=== PATIENT | female | born 1950 | race Caucasian/White ===

== ENCOUNTER 2017-01-26 09:48 | Outpatient (CLI) | payer BC, OTHER ==
[2017-01-26 10:18] LABS: #Basophils 0.1 thou/uL (0.0-0.2); #Eosinphils 0.4 thou/uL (0.0-0.7); #Lymphocytes 2.5 thou/uL (1.20-3.40); #Monocytes 0.8 thou/uL (0.11-0.59); #Neutrophils 5.5 thou/uL (1.40-6.50); %Basophils 1.3 % (0.0-1.0); %Eosinophils 4.4 % (0.0-10.0); %Lymphocytes 27.1 % (21.0-51.0); %Monocytes 8.8 % (0.0-10.0); %Neutrophils 58.5 % (42.0-75.0); Hemoglobin 12.9 g/dL (12.0-16.0); Mean Corpuscular HGB CONC 32.7 g/dL (32.0-36.0); Mean Corpuscular Hemoglobin 31.6 pg (27.0-31.0); Mean Corpuscular Volume 96.5 fl (81.0-99.0); Mean Platelet Volume 6.7 fL (7.4-10.4); Platelet Count 340 thou/uL (130-400); RBC Distribution Width 13.3 % (11.5-14.5); Red Blood Cell (RBC) Count 4.07 mill/uL (4.20-5.40); White Blood Cell (WBC) Count 9.4 thou/uL (4.8-10.8)
[2017-01-26 10:39] LABS: ALT (SGPT) 14 U/L (8-55); AST (SGOT) 17 U/L (5-34); Albumin 4.3 g/dL (3.4-4.8); Alkaline Phosphatase 77 U/L (40-150); Anion Gap 13 mmol/L (10-20); BUN (Urea Nitrogen) 14 mg/dL (9.8-20.1); Bilirubin, Total 0.5 mg/dL (0.2-1.2); Calc. Creatinine Clearance 0 mL/min (70-130); Calcium 9.5 mg/dL (7.8-10.44); Carbon Dioxide 26 mmol/L (23-31); Cardiac Risk 2.8 (Less than 4.5); Chloride 105 mmol/L (98-107); Cholesterol 163 mg/dl (< 200 Desired); Estimated GFR-MDRD 80; Globulin 3.6 g/dL (2.4-3.5); Glucose 118 mg/dL (80-115); HDL Cholesterol 59 mg/dL (>60 Neg Risk); LDL Cholesterol, Calculated 83 mg/dL; Potassium 4.3 mmol/L (3.5-5.1); Protein, Total 7.9 g/dL (6.0-8.3); Sodium 140 mmol/L (136-145); Triglycerides 103 mg/dL (Less than 150)
== END 2017-01-26 09:49 | disposition home or self-care (01) ==
LOC: MADLABBHPM 09:48
PROVIDERS: ATTEND Family Medicine
DX: Z00.00 Encounter for general adult medical examination without abnormal findings (principal)
CPT/HCPCS: 36415; 80053; 80061; 84443; 85025

== ENCOUNTER 2017-04-18 08:13 | Outpatient (CLI) | payer BC ==
[2017-04-18 09:05] LABS: Hemoglobin A1c 5.7 % (4.0-6.0)
[2017-04-18 09:17] LABS: #Basophils 0.1 thou/uL (0.0-0.2); #Eosinphils 0.4 thou/uL (0.0-0.7); #Neutrophils 5.5 thou/uL (1.40-6.50); %Basophils 1.4 % (0.0-1.0); %Eosinophils 4.4 % (0.0-10.0); %Lymphocytes 29.7 % (21.0-51.0); %Monocytes 9.4 % (0.0-10.0); %Neutrophils 55.1 % (42.0-75.0); Mean Corpuscular HGB CONC 33.4 g/dL (32.0-36.0); Mean Corpuscular Hemoglobin 31.9 pg (27.0-31.0); Mean Corpuscular Volume 95.4 fl (81.0-99.0); Mean Platelet Volume 7.3 fL (7.4-10.4); Platelet Count 293 thou/uL (130-400); RBC Distribution Width 12.4 % (11.5-14.5); Red Blood Cell (RBC) Count 4.07 mill/uL (4.20-5.40)
[2017-04-18 10:06] LABS: ALT (SGPT) 12 U/L (8-55); AST (SGOT) 16 U/L (5-34); Albumin 4.3 g/dL (3.4-4.8); Alkaline Phosphatase 70 U/L (40-150); Anion Gap 14 mmol/L (10-20); BUN (Urea Nitrogen) 15 mg/dL (9.8-20.1); Bilirubin, Direct 0.3 mg/dL (0.1-0.3); Bilirubin, Total 0.6 mg/dL (0.2-1.2); Calc. Creatinine Clearance 0 mL/min (70-130); Calcium 9.7 mg/dL (7.8-10.44); Carbon Dioxide 26 mmol/L (23-31); Cardiac Risk 2.9 (Less than 4.5); Chloride 103 mmol/L (98-107); Cholesterol 164 mg/dl (< 200 Desired); Estimated GFR-MDRD 84; Glucose 103 mg/dL (80-115); HDL Cholesterol 57 mg/dL (>60 Neg Risk); LDL Cholesterol, Calculated 92 mg/dL; Potassium 4.2 mmol/L (3.5-5.1); Protein, Total 7.8 g/dL (6.0-8.3); Sodium 139 mmol/L (136-145); Triglycerides 73 mg/dL (Less than 150)
[2017-04-18 18:53] LABS: Creatinine, Urine 92.83 mg/dL (47-110); Microalbumin Urine Less than 1.0 mg/dL (0.5-50.0); Microalbumin/Creat Ratio 10.8 mg/g (Less than 30)
== END 2017-04-18 08:14 | disposition home or self-care (01) ==
LOC: MADLABBHPM 08:13
PROVIDERS: ATTEND Family Medicine
DX: I25.10 Atherosclerotic heart disease of native coronary artery without angina pectoris (principal); E78.00 Pure hypercholesterolemia, unspecified; E11.9 Type 2 diabetes mellitus without complications
CPT/HCPCS: 36415; 80048; 80061; 80076; 82043; 83036; 85025

== ENCOUNTER 2018-02-07 13:13 | Emergency (ER) | payer BC ==
[2018-02-07] MEDS ORDERED: Ondansetron HCl/PF 4 MG/2 ML Vial ONE (13:45)
--- NOTE | 2018-02-07 13:49 | CT ---
CT BRAIN WITHOUT CONTRAST: Comparison: None. History: Headache for one week that is worse today. Technique: Multiple contiguous axial images were obtained in a CT of the brain without contrast. FINDINGS: There are a few scattered hypodensities in the subcortical and periventricular white matter, likely s econdary to small vessel ischemic disease. No large confluent infarction is seen. There is no evidenc e of hydrocephalus, intracranial hemorrhage or extraaxial fluid collection. The calvarium and overlying soft tissues are unremarkable. The visualized paranasal sinuses and masto id air cells are well aerated. IMPRESSION: No evidence of acute intracranial abnormality. POS: [facility]
--- NOTE | 2018-02-07 13:50 | RAD ---
PORTABLE UPRIGHT FRONTAL CHEST RADIOGRAPH: Date: 02/07/18 COMPARISON: 09/27/12. HISTORY: Dyspnea. FINDINGS: Midline sternotomy wires and mediastinal clips are present. The lungs appear mildly hyperinflated wit h mild increased linear interstitial density. No pneumothorax, pleural fluid, lobar consolidation, or alveolar edema. IMPRESSION: Postoperative changes. No acute findings. POS: [facility]
[2018-02-07 13:58] LABS: CKMB 0.7 ng/mL (0-6.6); Troponin I Less than 0.010 ng/mL (< 0.028)
[2018-02-07 14:00] LABS: Eosinophils 3 % (0-10); Hemoglobin 13.4 g/dL (12.0-16.0); Lymphocytes 18 % (21-51); MDiff Complete? YES; Mean Corpuscular HGB CONC 32.6 g/dL (32.0-36.0); Mean Corpuscular Hemoglobin 29.8 pg (27.0-31.0); Mean Corpuscular Volume 91.4 fL (78.0-98.0); Mean Platelet Volume 6.6 fL (7.4-10.4); Monocytes 4 % (0-10); Neutrophil 75 % (42-75); Platelet Count 320 thou/uL (130-400); RBC Distribution Width 12.7 % (11.5-14.5); Red Blood Cell (RBC) Count 4.49 mill/uL (4.20-5.40); White Blood Cell (WBC) Count 13.3 thou/uL (4.8-10.8)
[2018-02-07 14:02] LABS: ALT (SGPT) 13 U/L (8-55); AST (SGOT) 21 U/L (5-34); Albumin 4.5 g/dL (3.4-4.8); Alkaline Phosphatase 71 U/L (40-150); Anion Gap 17 mmol/L (10-20); BUN (Urea Nitrogen) 17 mg/dL (9.8-20.1); Bilirubin, Total 0.6 mg/dL (0.2-1.2); Calc. Creatinine Clearance 0 mL/min (70-130); Calcium 9.7 mg/dL (7.8-10.44); Carbon Dioxide 24 mmol/L (23-31); Chloride 105 mmol/L (98-107); Estimated GFR-MDRD 85; Globulin 3.6 g/dL (2.4-3.5); Glucose 112 mg/dL (80-115); Lipase 27 U/L (8-78); Protein, Total 8.1 g/dL (6.0-8.3); Sodium 142 mmol/L (136-145)
[2018-02-07] MEDS ORDERED: Ketorolac Tromethamine 30 MG/ML VIAL ONE (14:17)
[2018-02-07] MEDS ORDERED: Acetaminophen 500 MG TAB ONE (14:17)
== END 2018-02-07 14:41 | disposition home or self-care (01) ==
LOC: MADERS 13:13
DX: R51 Headache (principal); R11.0 Nausea; E11.9 Type 2 diabetes mellitus without complications; I10 Essential (primary) hypertension; I25.10 Atherosclerotic heart disease of native coronary artery without angina pectoris; F41.9 Anxiety disorder, unspecified; Z79.84 Long term (current) use of oral hypoglycemic drugs
CPT/HCPCS: 36415; 70450; 71045; 80053; 82553; 83690; 84484; 85025; 93005; 96374; 96375; J1885; J2405

== ENCOUNTER → 2019-10-30 | Emergency (ER) | payer MEDICARE ==
[~2019-10-30] MED LIST: Aspirin 325 MG TAB ONE; Nitroglycerin 2% Ointment 1 INCH/1 GM Packet ONE; Ondansetron ODT 4 MG TAB ONE
--- NOTE | 2019-10-30 16:13 | RAD ---
PORTABLE CHEST: 10/30/19 at 4:12 p.m. HISTORY: Chest pain. COMPARISON: Comparison made with exam of 02/07/18. Changes of median sternotomy again seen. The heart size is normal. No focal areas of consolidation, p neumothoraces, dieter pulmonary edema, or pleural effusions are seen. IMPRESSION: No acute process. POS: [facility]
[2019-10-30 16:17] LABS: #Basophils 0.2 thou/uL (0.0-0.2); #Eosinphils 0.5 thou/uL (0.0-0.7); #Lymphocytes 3.2 thou/uL (1.20-3.40); #Monocytes 0.8 thou/uL (0.11-0.59); #Neutrophils 5.8 thou/uL (1.40-6.50); %Basophils 1.5 % (0.0-1.0); %Eosinophils 4.8 % (0.0-10.0); %Lymphocytes 30.2 % (21.0-51.0); %Monocytes 7.9 % (0.0-10.0); %Neutrophils 55.6 % (42.0-75.0); Mean Corpuscular HGB CONC 32.1 g/dL (32.0-36.0); Mean Corpuscular Hemoglobin 30.5 pg (27.0-31.0); Mean Corpuscular Volume 95.2 fL (78.0-98.0); Platelet Count 330 thou/uL (130-400); RBC Distribution Width 12.9 % (11.5-14.5); Red Blood Cell (RBC) Count 4.27 mill/uL (4.20-5.40); White Blood Cell (WBC) Count 10.5 thou/uL (4.8-10.8)
[2019-10-30 16:31] LABS: ALT (SGPT) 15 U/L (8-55); AST (SGOT) 21 U/L (5-34); Albumin 4.5 g/dL (3.4-4.8); Alkaline Phosphatase 66 U/L (40-110); Anion Gap 19 mmol/L (10-20); BUN (Urea Nitrogen) 15 mg/dL (9.8-20.1); Bilirubin, Total 0.4 mg/dL (0.2-1.2); Calc. Creatinine Clearance 0 mL/min (70-130); Calcium 9.6 mg/dL (7.8-10.44); Carbon Dioxide 22 mmol/L (23-31); Chloride 107 mmol/L (98-107); Estimated GFR-MDRD 68; Globulin 3.3 g/dL (2.4-3.5); Glucose 111 mg/dL (80-115); Potassium 3.9 mmol/L (3.5-5.1); Protein, Total 7.8 g/dL (6.0-8.3); Sodium 144 mmol/L (136-145)
== END ==
LOC: MADERS 15:41
DX: I24.9 Acute ischemic heart disease, unspecified (principal); I25.110 Atherosclerotic heart disease of native coronary artery with unstable angina pectoris; E11.9 Type 2 diabetes mellitus without complications; I10 Essential (primary) hypertension; F41.9 Anxiety disorder, unspecified; Z79.84 Long term (current) use of oral hypoglycemic drugs
CPT/HCPCS: 71045; 80053; 83880; 84484; 85025; 93005; Q0162

== ENCOUNTER 2020-08-23 13:24 | Inpatient (IN) | payer MEDICARE ==
[2020-08-23] MEDS ORDERED: Acetaminophen 325 MG TAB PO PRN (17:22)
[2020-08-23] MEDS ORDERED: Enoxaparin Sodium 40 MG/0.4 ML SYRINGE SC SCH (17:45)
[2020-08-23] MEDS: HYDROcodone/Acetaminophen 5/325 mg Tablet PO PRN (18:18)
[2020-08-23] MEDS: Clindamycin 150 MG CAP PO SCH (20:33)
[2020-08-23] MEDS: Carvedilol 3.125 MG TAB PO SCH (20:34)
[2020-08-23] MEDS: Isosorbide Mononitrate 20 MG TAB PO SCH (20:34)
[2020-08-24] MEDS: HYDROcodone/Acetaminophen 10/325 mg Tablet PO PRN ×2 (02:58→15:12)
[2020-08-24 05:46] LABS: #Basophils 0.1 thou/uL (0.0-0.2); #Eosinphils 0.6 thou/uL (0.0-0.7); #Lymphocytes 2.7 thou/uL (1.20-3.40); #Monocytes 0.9 thou/uL (0.11-0.59); #Neutrophils 3.3 thou/uL (1.40-6.50); %Basophils 1.5 % (0.0-1.0); %Eosinophils 8.4 % (0.0-10.0); %Lymphocytes 35.3 % (21.0-51.0); %Neutrophils 42.8 % (42.0-75.0); Hemoglobin 10.1 g/dL (12.0-16.0); Mean Corpuscular HGB CONC 32.3 g/dL (32.0-36.0); Mean Corpuscular Hemoglobin 30.3 pg (27.0-31.0); Mean Platelet Volume 6.5 fL (7.4-10.4); Platelet Count 297 thou/uL (130-400); RBC Distribution Width 13.3 % (11.5-14.5); Red Blood Cell (RBC) Count 3.34 mill/uL (4.20-5.40); White Blood Cell (WBC) Count 7.7 thou/uL (4.8-10.8)
[2020-08-24 06:01] LABS: ALT (SGPT) 17 U/L (8-55); AST (SGOT) 17 U/L (5-34); Albumin 3.7 g/dL (3.4-4.8); Alkaline Phosphatase 81 U/L (40-110); Anion Gap 16 mmol/L (10-20); BUN (Urea Nitrogen) 19 mg/dL (9.8-20.1); Bilirubin, Total 0.3 mg/dL (0.2-1.2); Calc. Creatinine Clearance 95 mL/min (70-130); Calcium 9.2 mg/dL (7.8-10.44); Carbon Dioxide 29 mmol/L (23-31); Chloride 102 mmol/L (98-107); Globulin 2.9 g/dL (2.4-3.5); Glucose 115 mg/dL (80-115); Potassium 4.5 mmol/L (3.5-5.1); Protein, Total 6.6 g/dL (6.0-8.3); Sodium 142 mmol/L (136-145)
--- NOTE | 2020-08-24 06:06 | HP ---
Admitted to [facility]. CHIEF COMPLAINT: Weakness following surgery on her right lower leg. HISTORY OF PRESENT ILLNESS: The patient is a 69-year-old white female, who has a history of hypertension, coronary artery disease, diabetes mellitus type 2 that is well controlled, and osteoarthritis. The patient had undergone a right total knee replacement by Dr. Wilson, orthopedic surgeon, on May 11, 2020. The surgery was complicated by a fracture of the tibial shaft requiring some plate and cerclage stabilizers. The patient was initially nonweightbearing and gradually improved. She was seen in followup by him and seemed to be doing well and then recently developed more pain in the right lower leg. On followup visit, she was found to have a new fracture in the mid shaft of the right tibia. The patient was rehospitalized at [facility] on 08/18 for repair of the mid shaft fracture of the tibia. She underwent placement of a long plate with 9 screws. The long anterior incision was closed with interrupted sutures. She was placed at just light toe-touch to no weightbearing and no cast or splint and is due to see him in followup in 2 weeks. The patient's initial surgery on 05/11, she underwent the total knee replacement and after the fracture of the tibia was found, the tibial plateau plate was placed with a long-stem intramedullary component and then with cerclage wrappings. It was near this last cerclage that this new fracture occurred. The patient has been managing her pain with tramadol and hydrocodone and doing well. She is feeling better, but is weak and has not been really up doing any walking, is only getting around in a wheelchair. She was entered into [facility] for purpose of extended care with the effort to increase her strength, her functional capability and gait training where she can ambulate with nonweightbearing other than light toe touch with the use of a walker. Her daughter, Mamie, was with her and was able to give a good history of the events. PAST HISTORY: The patient has hypertension that is well controlled. Her diabetes is type 2 and is well controlled, on just metformin 500 mg twice a day, her last hemoglobin A1c was 5.9 on 07/21/2020. The patient has coronary artery disease, for which she has had a coronary artery bypass x4 in February 2011. She has had stents x1 in 2011, stents x1 in 2013. 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 She has hyperlipidemia. The patient has a history of depression that has been well controlled. PRESENT MEDICINES: 1. Sertraline 150 mg daily. 2. Atorvastatin 20 mg daily. 3. Clindamycin 300 mg t.i.d. 4. Tramadol 50 mg every 6 hours as needed for pain. 5. Hydrocodone/acetaminophen 10/325 one every 6 hours as needed for pain. 6. Aspirin 81 mg daily. 7. Carvedilol 3.125 mg b.i.d. 8. Calcium carbonate with D one daily. 9. Biotin 1000 mcg daily. 10. Furosemide 20 mg daily. 11. Isosorbide mononitrate 20 mg b.i.d. 12. Pantoprazole 40 mg daily. 13. Meloxicam 15 mg daily. 14. Metformin 500 mg b.i.d. ALLERGIES: PENICILLINS, NICKEL. REVIEW OF SYSTEMS: GENERAL: The patient said she does not think she has gained or lost any weight recently. She has had no chills or fever. EYES, EARS, NOSE, AND THROAT: No complaints. PULMONARY: No shortness of breath. CARDIOVASCULAR: No chest pain. GI: No nausea or vomiting. No change in bowel habits. : No complaints. MUSCULOSKELETAL: The right lower leg has a long incision. There has been a little brown reddish discoloration over the anterior lower leg. It looks better according to her daughter. There are a couple of spots of serous drainage from the incision. The leg is being wrapped with an Stephane bandage after a gauze dressing is applied. She is at no weightbearing or at most toe-touch. NEUROPSYCHIATRIC: No complaints other than she has some trouble with poor recent memory. ADLs: Prior to her fracture of the right lower leg, she was able to ambulate with the aid of a walker and manage her ADLs, was living by herself. HABITS: Alcohol, none. Tobacco, none. SOCIAL HISTORY: The patient is . CODE STATUS: Full code. PHYSICAL EXAMINATION: GENERAL: Shows a 69-year-old white female, who is sitting up in bed with her leg stretched out in front of her. She looks comfortable. She is talkative and very pleasant and in no distress. VITAL SIGNS: Show a temperature of 97.9, pulse 72, respirations 20, O2 saturation 95% on room air, blood pressure 119/72. Her weight is 182. Her height is 62 inches. HEENT: Head is normocephalic and atraumatic. Eyes, pupils are equal, round, and reactive. Sclerae nonicteric. Ears, TMs clear. Nose normal. Mouth and throat, normal. NECK: Carotids are equal and strong. No bruits. Thyroid not enlarged. LUNGS: Clear. HEART: Regular rate. No murmurs. ABDOMEN: Soft. No organomegaly. No areas of tenderness. EXTREMITIES: Right lower extremity, the patient has a long anterior incision that has been closed with interrupted sutures along the anterior leg. In the lower half, there is a little serous drainage from the incision in several spots. There is a little redness and pinkness over the distal portion of the right lower leg, which the daughter says is better. There is no increased heat. There is a little mild edema of the right lower leg. Left lower leg, there is no edema present. NEUROLOGIC: The patient is alert and oriented x3 and understands her situation and what has recently occurred. She has weakness in the right lower leg from the surgery. Otherwise, there is no focal weakness. SKIN: There is no rash. IMPRESSION: 1. Weakness and gait abnormality. a. Secondary to fracture of the midshaft of the right tibia, requiring open reduction and internal fixation on 08/18/2020. 2. Closed undisplaced mid right tibial fracture complicating a previous right total knee replacement and fracture of the tibia during surgery on 05/11. a. Required long plate and 9 screws. b. Presently on no weightbearing or toe-touch at most. c. Due for followup with Dr. Wilson in 2 weeks postop. 3. Diabetes type 2. a. Well controlled on metformin. b. Last hemoglobin A1c on 07/21/2020 was 5.9. 4. Hypertension. 5. Coronary artery disease. a. Status post coronary artery bypass x4 in 2010. b. Status post stents x1 in 2011 and again in 2013. c. Presently asymptomatic. 6. Hyperlipidemia. 7. Depression, well controlled. PLAN: The patient has been admitted to the hospital extended care for physical therapy and occupational therapy effort. They will work to try to improve her functional capability to help improve her gait since she is going to be essentially at no weightbearing on that right leg. She is due to see her orthopedic surgeon, Dr. Wilson, back in 2 weeks. Job ID: [id number] MTDD
[2020-08-24] MEDS: Atorvastatin Calcium 10 MG TAB PO SCH (08:45)
[2020-08-24] MEDS: Carvedilol 3.125 MG TAB PO SCH ×2 (08:45→20:26)
[2020-08-24] MEDS: Isosorbide Mononitrate 20 MG TAB PO SCH ×2 (08:45→20:26)
[2020-08-24] MEDS: Aspirin 81 mg Enteric Coated Tablet PO SCH (08:46)
[2020-08-24] MEDS: metFORMIN 500 MG TAB PO SCH ×2 (08:46→16:46)
[2020-08-24] MEDS: Clindamycin 150 MG CAP PO SCH ×3 (08:46→20:26)
[2020-08-24] MEDS: Meloxicam 7.5 MG TAB PO SCH (08:46)
--- NOTE | 2020-08-24 09:46 | PRG ---
DATE OF SERVICE: 08/24/2020 SUBJECTIVE: The patient says she is feeling good. She said she had to take one of the hydrocodone yesterday for her pain, and it seemed to work very well. She has worked with Physical Therapy this morning and was able to walk with the use of a walker and with just toe touching with right leg. OBJECTIVE: GENERAL: The patient is alert, talkative, appears very comfortable, in no distress. VITAL SIGNS: Temperature 97.8, pulse 61, respirations 16, O2 saturation 97% on room air, blood pressure 127/76. LUNGS: Clear. HEART: Regular rate. EXTREMITIES: Right lower leg was dressed. Dressing is dry. There is no edema of the foot or ankle. LABORATORY DATA: H and H 10.1 and 31.4, white cell count 7400 with 43% segs, 35% lymphocytes, and a platelet count of 297. Sodium 142, potassium 4.5, BUN 19, creatinine 0.74, glucose 115. Liver studies normal. ASSESSMENT: 1. Weakness and gait abnormality. a. Secondary to a fracture of the midshaft of the right tibia, requiring open reduction and internal fixation on 08/18/2020. 2. Closed undisplaced mid right tibial fracture, complicated by a previous right total knee replacement and fracture of the tibia during surgery on 05/11. a. Required long plate and 9 screws on 08/18/2020. b. Presently on no weightbearing to light toe-touch. c. Due to follow with her orthopedic surgeon, Dr. Wilson in 2 weeks. 3. Diabetes, type 2. a. Well controlled on metformin. b. Last hemoglobin A1c on 07/21/2020, 5.9. 4. Hypertension. 5. Coronary artery disease. a. Status post coronary artery bypass x4 in 2010. b. Status post stents x1 in 2011 and again in 2013. c. Presently asymptomatic. 6. Hyperlipidemia. 7. Depression, well controlled. PLAN: Continue present care. Continue PT and OT. Job ID: [id number]
[2020-08-24] MEDS: Lisinopril 10 MG TAB PO SCH (11:51)
[2020-08-24] MEDS: Furosemide 20 MG TAB PO SCH (12:08)
[2020-08-24] MEDS: Calcium Carbonate 600 MG + Vit D TAB PO SCH (12:08)
[2020-08-24] MEDS: BIOTIN 1000 MCG PO SCH (12:08)
[2020-08-24 16:45] LABS: SARS-CoV-2 MS2 Positive; SARS-CoV-2 N Gene Negative; SARS-CoV-2 S Gene Negative; SARS-CoV-2 by NAA Not Detected (NotDetected); SARS-CoV-2 orf1ab Negative
[2020-08-25] MEDS: Meloxicam 7.5 MG TAB PO SCH (08:43)
[2020-08-25] MEDS: Atorvastatin Calcium 10 MG TAB PO SCH (08:44)
[2020-08-25] MEDS: Carvedilol 3.125 MG TAB PO SCH ×2 (08:44→20:56)
[2020-08-25] MEDS: Aspirin 81 mg Enteric Coated Tablet PO SCH (08:44)
[2020-08-25] MEDS: Isosorbide Mononitrate 20 MG TAB PO SCH ×2 (08:44→20:56)
[2020-08-25] MEDS: Clindamycin 150 MG CAP PO SCH ×3 (08:45→20:56)
[2020-08-25] MEDS: metFORMIN 500 MG TAB PO SCH ×2 (08:50→17:15)
--- NOTE | 2020-08-25 10:41 | PRG ---
DATE OF SERVICE: 08/25/2020 SUBJECTIVE: The patient said she is doing good today. She is a little sore in her leg from just the PT yesterday. She was doing very well with her walking, with some just light toe touching on the right leg, use of a walker, standby assistance. OBJECTIVE: GENERAL: This morning, the patient is sitting in a wheelchair. She is alert, talkative, looks very comfortable. VITAL SIGNS: Her temperature is 98, pulse 62, respirations 16, O2 saturation 96%, and blood pressure 104/64. LUNGS: Clear. HEART: Regular rate. LOWER EXTREMITIES: No edema. The right lower leg has wrapping around the lower leg. The dressing is dry. ASSESSMENT: 1. Weakness and gait abnormality. a. Secondary to a fracture of the midshaft of the right tibia, requiring open reduction and internal fixation on 08/18/2020. b. Improved, walking by toe touching a little, use of a walker at short distance as of 08/25/2020. 2. Closed undisplaced mid right tibial fracture with a history of a right total knee replacement, fracture of the tibia during surgery on 05/11/2020. a. Required long plate, 9 screws on 08/18/2020. b. Presently on no weightbearing and light toe-touch. c. Due for followup with orthopedic surgeon, Dr. Wilson 2 weeks from surgery. d. Doing well as of 08/25/2020. 3. Diabetes, type 2. a. Well controlled on metformin. b. Last hemoglobin A1c 07/21/2020. 4. Hypertension. 5. Coronary artery disease. a. Status post coronary artery bypass x4 in 2010. b. Status post stents x1 in 2011 and again in 2013. c. Presently asymptomatic. 6. Hyperlipidemia. 7. Depression, well controlled. PLAN: Continue present care. Continue PT and OT. Job ID: [id number]
[2020-08-25] MEDS: Lisinopril 10 MG TAB PO SCH (11:45)
[2020-08-25] MEDS: Calcium Carbonate 600 MG + Vit D TAB PO SCH (11:45)
[2020-08-25] MEDS: Furosemide 20 MG TAB PO SCH (11:45)
[2020-08-25] MEDS: BIOTIN 1000 MCG PO SCH (11:46)
[2020-08-25] MEDS: HYDROcodone/Acetaminophen 10/325 mg Tablet PO PRN (14:02)
[2020-08-25 15:05] VITALS: BMI 32.4
[2020-08-26] MEDS: HYDROcodone/Acetaminophen 10/325 mg Tablet PO PRN (01:04)
[2020-08-26] MEDS: HYDROcodone/Acetaminophen 5/325 mg Tablet PO PRN ×3 (07:27→17:06)
[2020-08-26] MEDS ORDERED: Acetaminophen 325 MG TAB PO PRN (08:22)
[2020-08-26] MEDS: Aspirin 81 mg Enteric Coated Tablet PO SCH (08:37)
[2020-08-26] MEDS: Meloxicam 7.5 MG TAB PO SCH (08:37)
[2020-08-26] MEDS: Isosorbide Mononitrate 20 MG TAB PO SCH ×2 (08:37→20:17)
[2020-08-26] MEDS: metFORMIN 500 MG TAB PO SCH ×2 (08:37→17:04)
[2020-08-26] MEDS: Clindamycin 150 MG CAP PO SCH ×3 (08:38→20:17)
[2020-08-26] MEDS: Atorvastatin Calcium 10 MG TAB PO SCH (08:38)
[2020-08-26] MEDS: Carvedilol 3.125 MG TAB PO SCH ×2 (08:38→20:17)
--- NOTE | 2020-08-26 09:15 | PRG ---
DATE OF SERVICE: 08/26/2020 SUBJECTIVE: The patient thinks she is doing better. She is having a little nausea that may be from her pain medicine. I have asked her to see if she can get by with the Tylenol alone and then use the hydrocodone as a fallback. She is doing good with her physical therapy. OBJECTIVE: GENERAL: The patient is sitting up in a wheelchair, alert, appears comfortable and in no distress. VITAL SIGNS: Her temperature is 98.3, pulse 66, respirations 16, O2 saturation 100%, blood pressure 152/79. LUNGS: Clear. HEART: Regular rate. EXTREMITIES: Incision, just a small amount of serous drainage on the dressing. There is no active drainage that can be seen. The incision is healing. The area of the lower portion of this incision that was pink has developed just a little slight light brown discoloration. Overall looks better. ASSESSMENT: 1. Weakness and gait abnormality. a. Secondary to a fracture of the midshaft of the right tibia requiring open reduction and internal fixation on 08/18/2020. b. Improved, walking by very light toe touching with the right with the use of a walker. 2. Closed nondisplaced mid right tibial fracture with a history of right total knee replacement with fracture of the tibia during surgery on 05/11/2020. a. Required long plate, 9 screws on 08/18/2020. b. Presently on weightbearing to very light toe touch. c. Due for followup with orthopedic surgeon, Dr. Wilson, 2 weeks from surgery. d. Doing well. 3. Diabetes type 2. a. Well controlled on metformin. b. Last hemoglobin A1c was 5.9 on 07/21/2020. 4. Hypertension, controlled. 5. Coronary artery disease. a. Status post coronary artery bypass times x4 in 2010. b. Status post stents x1, in 2011 and again in 2013. c. Presently asymptomatic. 6. Hyperlipidemia. 7. Depression, well controlled. 8. Some intermittent nausea, suspect related to the hydrocodone. PLAN: We will try to preferentially use the Tylenol and use the hydrocodone only for severe pain. Job ID: [id number]
[2020-08-26] MEDS: Furosemide 20 MG TAB PO SCH (12:19)
[2020-08-26] MEDS: Lisinopril 10 MG TAB PO SCH (12:19)
[2020-08-26] MEDS: Calcium Carbonate 600 MG + Vit D TAB PO SCH (12:19)
[2020-08-26] MEDS: BIOTIN 1000 MCG PO SCH (12:19)
[2020-08-27] MEDS: HYDROcodone/Acetaminophen 5/325 mg Tablet PO PRN ×3 (00:23→14:43)
[2020-08-27] MEDS: Meloxicam 7.5 MG TAB PO SCH (08:20)
[2020-08-27] MEDS: Clindamycin 150 MG CAP PO SCH ×3 (08:22→20:21)
[2020-08-27] MEDS: Isosorbide Mononitrate 20 MG TAB PO SCH ×2 (08:23→20:21)
[2020-08-27] MEDS: Atorvastatin Calcium 10 MG TAB PO SCH (08:23)
[2020-08-27] MEDS: Aspirin 81 mg Enteric Coated Tablet PO SCH (08:23)
[2020-08-27] MEDS: metFORMIN 500 MG TAB PO SCH ×2 (08:23→17:55)
[2020-08-27] MEDS: Carvedilol 3.125 MG TAB PO SCH ×2 (08:24→20:21)
--- NOTE | 2020-08-27 11:55 | PRG ---
DATE OF SERVICE: 08/27/2020 SUBJECTIVE: Patient says she has been doing good. This morning she was hurting a lot in the right lower leg. She thinks it was just from the increased therapy she had been doing. She has taken one of the pain pills and the pain is all resolved. Since she has cut back on the hydrocodone and using the Tylenol, she has not had any more of the nausea. OBJECTIVE: GENERAL: The patient is sitting up in her wheelchair. She is alert, talkative, looks very comfortable and presently her pain is resolved. VITAL SIGNS: Shows temp 97.8, pulse 64, respirations 16, O2 saturation 98% on room air, blood pressure was 170/72. Earlier pressure was 130/73. This reading was when she was hurting and had not had morning medications. LUNGS: Clear. HEART: Regular rate. EXTREMITIES: Dressing on the right lower leg is dry. LABORATORY DATA: Her FBS this morning was 117. ASSESSMENT: 1. Weakness and gait abnormality. a. Secondary to a fracture of the midshaft of the right tibia requiring open reduction internal fixation on 08/18/2020. b. Improving walking with very light toe-touch with the use of a walker. 2. Closed nondisplaced mid right tibial fracture with a history of a right total knee replacement with a fracture of the tibia during surgery on 05/11/2020. a. Required long leg plate and 9 screws on 08/18/2020. b. No weightbearing to light toe touch on the right leg. c. Due for followup 2 weeks postop with her orthopedic surgeon, Dr. Spaw. camacho. Doing well. 3. Diabetes type 2. a. Well controlled on metformin. b. Last hemoglobin A1c 5.9 on 07/21/2020. 4. Hypertension, controlled. 5. Coronary artery disease. a. Status post coronary artery bypass graft x4 in 2010. b. Status post stents x1 in 2011 and again in 2013. c. Presently asymptomatic. 6. Hyperlipidemia. 7. Depression, controlled. 8. Nausea, resolved since cutting back on the hydrocodone. PLAN: Continue present care. Continue PT and OT. Job ID: [id number]
[2020-08-27] MEDS: Lisinopril 10 MG TAB PO SCH (12:16)
[2020-08-27] MEDS: Calcium Carbonate 600 MG + Vit D TAB PO SCH (12:16)
[2020-08-27] MEDS: BIOTIN 1000 MCG PO SCH (12:16)
[2020-08-27] MEDS: Furosemide 20 MG TAB PO SCH (12:16)
[2020-08-28] MEDS: HYDROcodone/Acetaminophen 5/325 mg Tablet PO PRN ×2 (01:39→18:10)
[2020-08-28] MEDS: metFORMIN 500 MG TAB PO SCH ×2 (08:15→16:54)
[2020-08-28] MEDS: Carvedilol 3.125 MG TAB PO SCH ×2 (08:15→21:31)
[2020-08-28] MEDS: Atorvastatin Calcium 10 MG TAB PO SCH (08:15)
[2020-08-28] MEDS: Clindamycin 150 MG CAP PO SCH ×3 (08:15→21:31)
[2020-08-28] MEDS: Meloxicam 7.5 MG TAB PO SCH (08:16)
[2020-08-28] MEDS: Isosorbide Mononitrate 20 MG TAB PO SCH ×2 (08:16→21:31)
[2020-08-28] MEDS: Aspirin 81 mg Enteric Coated Tablet PO SCH (08:16)
[2020-08-28] MEDS: Calcium Carbonate 600 MG + Vit D TAB PO SCH (11:50)
[2020-08-28] MEDS: Lisinopril 10 MG TAB PO SCH (11:50)
[2020-08-28] MEDS: Furosemide 20 MG TAB PO SCH (11:50)
[2020-08-28] MEDS: BIOTIN 1000 MCG PO SCH (11:51)
[2020-08-29] MEDS: HYDROcodone/Acetaminophen 5/325 mg Tablet PO PRN ×4 (02:08→23:17)
--- NOTE | 2020-08-29 06:40 | PRG ---
DATE OF SERVICE: 08/28/2020 SUBJECTIVE: The patient says she is feeling good this morning. She did get up with therapy yesterday. Her pain is well controlled. She has not had any more nausea since she has cut way back on the hydrocodone. OBJECTIVE: GENERAL: The patient is sitting up in her wheelchair. She is alert, talkative, appears very comfortable, and in no distress. VITAL SIGNS: Show a temperature 97.8, pulse 64, respiration 16, O2 saturation 98% on room air, blood pressure this morning is 141/66. LUNGS: Clear. HEART: Regular rate. EXTREMITIES: Incision along the anterior lower leg is healing. There is just very slight serous drainage on the dressing. Lower area of the surrounding skin that was a little red and pink has all turned to kind of a slight brownish dark color, looks much better. ASSESSMENT: 1. Weakness and gait abnormality. a. Secondary to a fracture of the midshaft of the right tibia, requiring open reduction and internal fixation on 08/18/2020. b. Improved. Walking further with very light toe touching and the use of a walker. 2. Closed, nondisplaced mid tibial fracture with a history of right total knee replacement with fracture of the tibia during surgery on 04/10/2020. a. Required long leg plate, 9 screws on 08/18/2020. b. On no weightbearing to light toe-touch on the right leg. c. Due for followup 2 weeks postop with her surgeon, Dr. Spaw. camacho. Doing well. 3. Diabetes type 2. a. Well controlled on metformin. b. Last hemoglobin A1c 5.9 on 07/21/2020. 4. Hypertension, controlled. 5. Coronary artery disease. a. Status post coronary artery bypass x4 in 2010. b. Status post stent x1 in 2011 and again in 2013. c. Presently asymptomatic. 6. Hyperlipidemia. 7. Depression, controlled. 8. Nausea, resolved since the hydrocodone has been cut back. PLAN: The patient is doing very well. Continue PT and OT. Job ID: [id number]
[2020-08-29] MEDS: Isosorbide Mononitrate 20 MG TAB PO SCH ×2 (08:11→20:07)
[2020-08-29] MEDS: Meloxicam 7.5 MG TAB PO SCH (08:11)
[2020-08-29] MEDS: Atorvastatin Calcium 10 MG TAB PO SCH (08:11)
[2020-08-29] MEDS: Carvedilol 3.125 MG TAB PO SCH ×2 (08:12→20:07)
[2020-08-29] MEDS: metFORMIN 500 MG TAB PO SCH ×2 (08:12→16:55)
[2020-08-29] MEDS: Aspirin 81 mg Enteric Coated Tablet PO SCH (08:12)
[2020-08-29] MEDS: Furosemide 20 MG TAB PO SCH (11:05)
[2020-08-29] MEDS: Calcium Carbonate 600 MG + Vit D TAB PO SCH (11:05)
[2020-08-29] MEDS: Lisinopril 10 MG TAB PO SCH (11:05)
[2020-08-29] MEDS: BIOTIN 1000 MCG PO SCH (11:52)
[2020-08-30] MEDS: metFORMIN 500 MG TAB PO SCH ×2 (07:57→17:14)
[2020-08-30] MEDS: Meloxicam 7.5 MG TAB PO SCH (07:58)
[2020-08-30] MEDS: Atorvastatin Calcium 10 MG TAB PO SCH (07:58)
[2020-08-30] MEDS: Isosorbide Mononitrate 20 MG TAB PO SCH ×2 (07:59→20:11)
[2020-08-30] MEDS: Carvedilol 3.125 MG TAB PO SCH ×2 (07:59→20:11)
[2020-08-30] MEDS: Aspirin 81 mg Enteric Coated Tablet PO SCH (07:59)
[2020-08-30] MEDS: HYDROcodone/Acetaminophen 5/325 mg Tablet PO PRN ×2 (08:08→19:48)
[2020-08-30] MEDS: Furosemide 20 MG TAB PO SCH (12:11)
[2020-08-30] MEDS: Lisinopril 10 MG TAB PO SCH (12:11)
[2020-08-30] MEDS: Calcium Carbonate 600 MG + Vit D TAB PO SCH (12:11)
[2020-08-30] MEDS: BIOTIN 1000 MCG PO SCH (12:12)
--- NOTE | 2020-08-31 05:37 | PRG ---
DATE OF SERVICE: 08/30/2020 SUBJECTIVE: The patient is up with Physical Therapy Department. She is working on a NuStep which works her arms and her legs. She is doing very well on this and has spent 20 minutes. She is walking just a little further, with just very light toe touching on the right. Her leg is feeling better. She has had no nausea. OBJECTIVE: GENERAL: The patient is sitting up on the NuStep. She is alert, talkative, appears comfortable, and in no distress. VITAL SIGNS: Her temp is 98.2, pulse 62, respirations 16, O2 saturation 98% on room air, blood pressure 123/75. FBS this morning 105. LUNGS: Clear. HEART: Regular rate. ASSESSMENT: 1. Weakness and gait abnormality. a. Secondary to her fracture of the midshaft of the right tibia, requiring ORIF on 08/18/2020. b. Improving, walking a little further with very light toe touching with the use of a walker. 2. Closed nondisplaced mid tibial fracture with a history of right total knee replacement with fracture of the tibia during surgery on 04/10/2020. a. Required long leg plate, 9 screws on 08/18/2020. b. No weightbearing to light toe-touch on the right. c. Due for 2 week postop followup with her surgeon Dr. Spaw. camacho. Doing well. 3. Diabetes type 2. a. Well controlled on metformin. b. Last hemoglobin A1c 5.9 on 07/21/2020. 4. Hypertension, controlled. 5. Coronary artery disease. a. Status post coronary artery bypass x4 in 2010. b. Status post stent x1 in 2011 and again in 2013. c. Presently asymptomatic. 6. Hyperlipidemia. 7. Depression, controlled. 8. Nausea, resolved after hydrocodone reduced. PLAN: The patient is doing very well. We will continue present care and PT and OT. Job ID: [id number]
[2020-08-31] MEDS: HYDROcodone/Acetaminophen 5/325 mg Tablet PO PRN ×2 (05:38→18:35)
[2020-08-31] MEDS: Meloxicam 7.5 MG TAB PO SCH (08:43)
[2020-08-31] MEDS: Isosorbide Mononitrate 20 MG TAB PO SCH ×2 (08:43→20:47)
[2020-08-31] MEDS: Aspirin 81 mg Enteric Coated Tablet PO SCH (08:43)
[2020-08-31] MEDS: metFORMIN 500 MG TAB PO SCH ×2 (08:43→16:52)
[2020-08-31] MEDS: Atorvastatin Calcium 10 MG TAB PO SCH (08:43)
[2020-08-31] MEDS: Carvedilol 3.125 MG TAB PO SCH ×2 (08:44→20:47)
--- NOTE | 2020-08-31 10:30 | PRG ---
DATE OF SERVICE: 08/31/2020 SUBJECTIVE: Patient thinks she is doing pretty good. She still has some soreness in the right leg, but overall it is better. She is walking better with just the toe touching and using her walker, is walking up to 150 feet a couple of times a day. She is transferring better but requires supervision. OBJECTIVE: GENERAL: The patient is alert, appears in no distress. VITAL SIGNS: Her temperature is 98.2, pulse 66, respirations 16, O2 saturation 98% on room air, and blood pressure 122/70. LUNGS: Clear. HEART: Regular rate. EXTREMITIES: In lower leg, there is no swelling. LABORATORY DATA: FBS this morning 121. ASSESSMENT: 1. Weakness and gait abnormality. a. Secondary to her fracture of the midshaft of the right tibia requiring open reduction and internal fixation on 08/18/2020. b. Improving. Walking up to 150 feet, just slight toe touching and use of a walker as of 08/31/2020. 2. Closed nondisplaced mid tibial fracture with a history of a right total knee replacement complicated by fracture of the tibia during surgery on 04/10/2020. a. Required long leg plate and nine screws on 08/18/2020. b. No weightbearing to light toe-touch on the right. c. Due for recheck with Dr. Wilson two weeks postop. d. Doing well. 3. Diabetes 2. a. Well controlled. b. Last hemoglobin A1c at 5.9 on 07/21/2020. 4. Hypertension, controlled. 5. Coronary artery disease. a. Status post coronary artery bypass x4 in 2010. b. Status post stent x1 in 2011 and again in 2013. c. Presently asymptomatic. 6. Hyperlipidemia. 7. Depression, controlled. 8. Nausea, resolved. PLAN: The patient is doing very well. Continue PT and OT. Job ID: [id number]
[2020-08-31] MEDS: Calcium Carbonate 600 MG + Vit D TAB PO SCH (12:03)
[2020-08-31] MEDS: Furosemide 20 MG TAB PO SCH (12:03)
[2020-08-31] MEDS: Lisinopril 10 MG TAB PO SCH (12:03)
[2020-09-01] MEDS: Isosorbide Mononitrate 20 MG TAB PO SCH ×2 (08:20→21:58)
[2020-09-01] MEDS: Atorvastatin Calcium 10 MG TAB PO SCH (08:20)
[2020-09-01] MEDS: Aspirin 81 mg Enteric Coated Tablet PO SCH (08:20)
[2020-09-01] MEDS: metFORMIN 500 MG TAB PO SCH ×2 (08:20→16:58)
[2020-09-01] MEDS: Meloxicam 7.5 MG TAB PO SCH (08:21)
[2020-09-01] MEDS: Carvedilol 3.125 MG TAB PO SCH ×2 (08:21→21:58)
[2020-09-01] MEDS: HYDROcodone/Acetaminophen 5/325 mg Tablet PO PRN ×3 (08:24→22:02)
--- NOTE | 2020-09-01 09:21 | PRG ---
DATE OF SERVICE: 09/01/2020 SUBJECTIVE: Patient is feeling better. Pain seemed to be well controlled. She has had no nausea. She is doing excellent with her walking. OBJECTIVE: GENERAL: The patient is alert, appears in no distress. She is sitting on a NuStep, working her arms and her left leg. VITAL SIGNS: Her temp is 97.9, pulse 67, respirations 16, O2 saturation 97% on room air, blood pressure 156/72 last evening; morning vitals pending. LUNGS: Clear. HEART: Regular rate. EXTREMITIES: The incision along the anterior lower leg is healing well. There is just a spot of serous drainage that is dried on the dressing. There is no redness nor pinkness to the leg. The incision is healing very well. There is no edema. ASSESSMENT: 1. Weakness and gait abnormality. a. Secondary to a fracture of the midshaft of the right tibia, requiring open reduction and internal fixation on 08/18/2020. b. Excellent progress, walking up to 150 feet with just a slight toe touching on the right and with the use of a walker as of 09/01/2020. 2. Closed nondisplaced mid tibial shaft fracture with a history of right total knee replacement complicated by fracture of the tibia during surgery on 04/10/2020. a. Required long leg plate and 9 screws on 08/18/2020. b. Only light toe touching on the right. c. Due for recheck with orthopedic surgeon, Dr. Wilson on 09/03/2020. d. Doing very well. 3. Diabetes 2. a. Well controlled. b. Last hemoglobin A1c at 5.9 on 07/21/2020. 4. Hypertension, controlled. 5. Coronary artery disease. a. Status post coronary artery bypass grafting x4 in 2010. b. Status post stent x1 in 2011 and again in 2013. c. Presently asymptomatic. 6. Hyperlipidemia. 7. Depression, controlled. 8. Nausea, resolved. PLAN: The patient is doing very very well. Anticipate her discharge probably tomorrow. In the interval, we will continue PT and OT. The patient is due to see orthopedic surgeon in followup on 09/03/2020. Job ID: [id number]
[2020-09-01] MEDS: Furosemide 20 MG TAB PO SCH (11:54)
[2020-09-01] MEDS: Calcium Carbonate 600 MG + Vit D TAB PO SCH (11:54)
[2020-09-01] MEDS: Lisinopril 10 MG TAB PO SCH (11:57)
[2020-09-02] MEDS: metFORMIN 500 MG TAB PO SCH (08:35)
[2020-09-02] MEDS: Meloxicam 7.5 MG TAB PO SCH (08:35)
[2020-09-02] MEDS: Isosorbide Mononitrate 20 MG TAB PO SCH (08:35)
[2020-09-02] MEDS: Carvedilol 3.125 MG TAB PO SCH (08:35)
[2020-09-02] MEDS: Aspirin 81 mg Enteric Coated Tablet PO SCH (08:35)
[2020-09-02] MEDS: Atorvastatin Calcium 10 MG TAB PO SCH (08:38)
[2020-09-02 08:47] VITALS: BP 165/67; TEMP 98.2
[2020-09-02] MEDS: HYDROcodone/Acetaminophen 5/325 mg Tablet PO PRN (09:01)
[2020-09-02] MEDS: Calcium Carbonate 600 MG + Vit D TAB PO SCH (12:08)
[2020-09-02] MEDS: Lisinopril 10 MG TAB PO SCH (12:08)
[2020-09-02] MEDS: Furosemide 20 MG TAB PO SCH (12:08)
--- NOTE | 2020-09-03 09:21 | DIS ---
DATE OF ADMISSION: 08/23/2020 DATE OF DISCHARGE: 09/02/2020 FINAL DIAGNOSES: 1. Weakness and gait abnormality. a. Secondary to a fracture of the midshaft of the right tibia requiring open reduction and internal fixation on 08/18/2020. b. Excellent progress, walking up to 150 feet with just slight toe walking on the right and with the use of a walker as of 09/02/2020. 2. Closed, nondisplaced mid tibial shaft fracture with a history of right total knee replacement, complicated by fracture of the tibia during surgery on 04/10/2020. a. Required long leg plate and 9 screws on 08/18/2020. b. Only light toe touching on the right. c. Due for recheck with orthopedic surgeon, Dr. Wilson, on 09/03/2020. d. Excellent progress. 3. Diabetes type 2. a. Well controlled. b. Last hemoglobin A1c 5.9 on 07/21/2020. 4. Hypertension, controlled. 5. Coronary artery disease. a. Status post coronary artery bypass grafting x4 in 2010. b. Status post stent times x1 in 2011 and again in 2013. c. Presently asymptomatic. 6. Hyperlipidemia. 7. Depression. 8. Nausea secondary to the hydrocodone, resolved. SUMMARY: Patient is a very pleasant 69-year-old white female, who has a history of diabetes that is well controlled, coronary artery disease that is asymptomatic, and hypertension. She has severe arthritis of her knees and had undergone a right total knee replacement on 04/10/2020. This was complicated by a fracture of the tibia that was all repaired. The patient was doing well and then was found to have a mid tibial fracture of the right tibia. She was hospitalized by orthopedic surgeon on 08/18/2020 and underwent open reduction and internal fixation of the mid tibial fracture. She had long plate and screws applied and then she was placed on nonweightbearing to just light toe-touch. She initially went home while insurance was arranging for her to be admitted to snf for further PT and OT. She was admitted to [facility] on 08/23 and remained there until 09/02/2020. She made excellent progress, was walking with a walker and light toe-touch. The patient made excellent progress with physical therapy and by the time of her discharge, she was walking up to 150 feet with just light toe-touching on her right and with the use of a walker. She was walking up to 150 and at times even 200 feet. The incision was healing well. Her pain was well controlled with just the Tylenol. Initially, she was taking some hydrocodone, that created some nausea, but the nausea resolved after the hydrocodone was stopped. She has done very well and her diabetes showed good control. Her blood pressure was well controlled. By 09/02/2020, her condition had improved such that it was felt like she would do fine at home. She will see her orthopedic surgeon, Dr. Wilson, in followup on 09/03/2020. DISPOSITION: DIET: Consistent carbohydrate, no added salt diet. ACTIVITIES: Ambulate with the use of a walker and only light toe-touching on the right. MEDICATIONS: 1. Tylenol 325 mg two every 4 hours as needed. 2. Aspirin 81 mg daily. 3. Atorvastatin 20 mg daily. 4. Caltrate D 600/200 one twice today. 5. Carvedilol 3.125 mg b.i.d. 6. Furosemide 20 mg daily. 7. Isosorbide mononitrate 20 mg b.i.d. 8. Lisinopril 10 mg daily. 9. Meloxicam 15 mg daily. 10. Metformin 500 mg b.i.d. 11. Pantoprazole 40 mg daily. 12. Sertraline 150 mg daily. FOLLOWUP: The patient will see her orthopedic surgeon, Dr. Wilson, on 09/03/2020. The patient will be seen in followup by myself in 2 weeks. [facility] will see patient and arrange in home PT. Job ID: [id number] [facility]
== END 2020-09-02 13:05 | disposition home or self-care (01) | DRG 948 ==
LOC: MADMS 14:47
PROVIDERS: ADMIT Family Medicine; ATTEND Family Medicine
DX: R53.1 Weakness (principal); R26.9 Unspecified abnormalities of gait and mobility; E11.9 Type 2 diabetes mellitus without complications; I10 Essential (primary) hypertension; I25.10 Atherosclerotic heart disease of native coronary artery without angina pectoris; E78.5 Hyperlipidemia, unspecified; F32.9 Major depressive disorder, single episode, unspecified; R11.0 Nausea; T40.2X5A Adverse effect of other opioids, initial encounter; M17.12 Unilateral primary osteoarthritis, left knee; Z96.651 Presence of right artificial knee joint; S82.201D Unspecified fracture of shaft of right tibia, subsequent encounter for closed fracture with routine healing; Z79.4 Long term (current) use of insulin; Z95.5 Presence of coronary angioplasty implant and graft; Z95.1 Presence of aortocoronary bypass graft; Z88.0 Allergy status to penicillin; Z88.8 Allergy status to other drugs, medicaments and biological substances
CPT/HCPCS: 36415; 36416; 80053; 85025; 87635; J1650; U0003

== ENCOUNTER 2020-10-11 17:41 | Inpatient (IN) | payer MEDICARE ==
[2020-10-11] MEDS ORDERED: Acetaminophen 325 MG TAB PO PRN (20:57)
[2020-10-11] MEDS: HYDROcodone/Acetaminophen 10/325 mg Tablet PO PRN (21:03)
[2020-10-11] MEDS ORDERED: Vancomycin HCl 750 MG in Sodium Chloride 0.9% 250 ML 250 ML IVPB SCH ×2 (21:30→22:30)
[2020-10-11] MEDS: Isosorbide Mononitrate 20 MG TAB PO SCH (22:30)
[2020-10-11] MEDS: Rifampin 300 MG CAP PO SCH (22:49)
[2020-10-12] MEDS: HYDROcodone/Acetaminophen 10/325 mg Tablet PO PRN ×4 (03:44→21:30)
[2020-10-12] MEDS: Multivit, Therapeutic 1 TAB PO SCH (09:48)
[2020-10-12] MEDS: Calcium Carbonate 600 MG + Vit D TAB PO SCH (09:48)
[2020-10-12] MEDS: Isosorbide Mononitrate 20 MG TAB PO SCH ×2 (09:48→21:12)
[2020-10-12] MEDS: metFORMIN 500 MG TAB PO SCH ×2 (09:48→17:18)
[2020-10-12] MEDS: Carvedilol 3.125 MG TAB PO SCH ×2 (09:48→17:18)
[2020-10-12] MEDS: Meloxicam 7.5 MG TAB PO SCH (09:49)
[2020-10-12] MEDS: Aspirin Chewable 81 MG TAB PO SCH (09:50)
[2020-10-12] MEDS: Rifampin 300 MG CAP PO SCH ×2 (09:51→21:13)
[2020-10-12] MEDS: Furosemide 20 MG TAB PO SCH (09:52)
[2020-10-12] MEDS: Vancomycin HCl 1 GM in Sodium Chloride 0.9% 250 ML 250 ML IVPB SCH ×2 (09:52→21:11)
[2020-10-12 11:41] LABS: Hemoglobin A1c 5.8 % (4.0-6.0)
[2020-10-12] MEDS: Lisinopril 10 MG TAB PO SCH (12:31)
[2020-10-12] MEDS: Atorvastatin Calcium 10 MG TAB PO SCH (12:31)
[2020-10-13] MEDS: HYDROcodone/Acetaminophen 10/325 mg Tablet PO PRN ×3 (04:17→17:17)
[2020-10-13] MEDS: Vancomycin HCl 1 GM in Sodium Chloride 0.9% 250 ML 250 ML IVPB SCH (09:40)
[2020-10-13] MEDS: metFORMIN 500 MG TAB PO SCH ×2 (09:41→17:17)
[2020-10-13] MEDS: Multivit, Therapeutic 1 TAB PO SCH (09:41)
[2020-10-13] MEDS: Isosorbide Mononitrate 20 MG TAB PO SCH ×2 (09:42→20:40)
[2020-10-13] MEDS: Meloxicam 7.5 MG TAB PO SCH (09:42)
[2020-10-13] MEDS: Aspirin Chewable 81 MG TAB PO SCH (09:42)
[2020-10-13] MEDS: Rifampin 300 MG CAP PO SCH ×2 (09:43→21:12)
[2020-10-13] MEDS: Calcium Carbonate 600 MG + Vit D TAB PO SCH (09:43)
[2020-10-13] MEDS: Carvedilol 3.125 MG TAB PO SCH ×2 (09:44→17:16)
[2020-10-13] MEDS: Furosemide 20 MG TAB PO SCH (09:44)
[2020-10-13] MEDS: Atorvastatin Calcium 10 MG TAB PO SCH (12:31)
[2020-10-13] MEDS: Lisinopril 10 MG TAB PO SCH (12:31)
[2020-10-13] MEDS: Ondansetron ODT 4 MG TAB PO PRN (12:54)
[2020-10-13 20:18] LABS: Vancomycin, Trough 12.8 ug/mL
[2020-10-13] MEDS: Vancomycin HCl 500 MG in Sodium Chloride 0.9% 100 ML IVPB SCH (21:11)
[2020-10-13] MEDS: Vancomycin HCl 750 MG in Sodium Chloride 0.9% 250 ML 250 ML IVPB SCH (21:11)
[2020-10-14 05:40] LABS: #Basophils 0.1 thou/uL (0.0-0.2); #Eosinphils 0.4 thou/uL (0.0-0.7); #Lymphocytes 2.1 thou/uL (1.20-3.40); #Monocytes 1.1 thou/uL (0.11-0.59); #Neutrophils 8.1 thou/uL (1.40-6.50); %Basophils 0.7 % (0.0-1.0); %Eosinophils 3.4 % (0.0-10.0); %Lymphocytes 17.6 % (21.0-51.0); %Monocytes 9.5 % (0.0-10.0); %Neutrophils 68.8 % (42.0-75.0); Hemoglobin 9.9 g/dL (12.0-16.0); Mean Corpuscular HGB CONC 31.8 g/dL (32.0-36.0); Mean Corpuscular Hemoglobin 29.7 pg (27.0-31.0); Mean Corpuscular Volume 93.3 fL (78.0-98.0); Mean Platelet Volume 5.7 fL (7.4-10.4); Platelet Count 398 thou/uL (130-400); Red Blood Cell (RBC) Count 3.34 mill/uL (4.20-5.40); White Blood Cell (WBC) Count 11.8 thou/uL (4.8-10.8)
[2020-10-14 05:48] LABS: ALT (SGPT) 17 U/L (8-55); AST (SGOT) 23 U/L (5-34); Albumin 3.5 g/dL (3.4-4.8); Alkaline Phosphatase 79 U/L (40-110); Anion Gap 12 mmol/L (10-20); BUN (Urea Nitrogen) 12 mg/dL (9.8-20.1); Bilirubin, Total 0.2 mg/dL (0.2-1.2); CRP (Inflammatory) 2.78 mg/dL (= or < 0.5); Calc. Creatinine Clearance 107 mL/min (70-130); Carbon Dioxide 31 mmol/L (23-31); Chloride 105 mmol/L (98-107); Glucose 145 mg/dL (80-115); Potassium 3.9 mmol/L (3.5-5.1); Protein, Total 6.5 g/dL (5.8-8.1); Sodium 144 mmol/L (136-145)
[2020-10-14] MEDS: Vancomycin HCl 750 MG in Sodium Chloride 0.9% 250 ML 250 ML IVPB SCH ×2 (08:18→20:16)
[2020-10-14] MEDS: Calcium Carbonate 600 MG + Vit D TAB PO SCH (08:19)
[2020-10-14] MEDS: Meloxicam 7.5 MG TAB PO SCH (08:19)
[2020-10-14] MEDS: Isosorbide Mononitrate 20 MG TAB PO SCH ×2 (08:19→20:14)
[2020-10-14] MEDS: Furosemide 20 MG TAB PO SCH (08:19)
[2020-10-14] MEDS: Aspirin Chewable 81 MG TAB PO SCH (08:19)
[2020-10-14] MEDS: Multivit, Therapeutic 1 TAB PO SCH (08:19)
[2020-10-14] MEDS: Carvedilol 3.125 MG TAB PO SCH ×2 (08:20→16:41)
[2020-10-14] MEDS: HYDROcodone/Acetaminophen 10/325 mg Tablet PO PRN ×2 (08:20→20:15)
[2020-10-14] MEDS: metFORMIN 500 MG TAB PO SCH ×2 (08:20→16:41)
[2020-10-14] MEDS: Vancomycin HCl 500 MG in Sodium Chloride 0.9% 100 ML IVPB SCH ×2 (10:42→20:17)
[2020-10-14] MEDS: Rifampin 300 MG CAP PO SCH ×2 (10:43→20:30)
[2020-10-14] MEDS: Atorvastatin Calcium 10 MG TAB PO SCH (12:34)
[2020-10-14] MEDS: Lisinopril 10 MG TAB PO SCH (12:34)
[2020-10-15] MEDS: HYDROcodone/Acetaminophen 10/325 mg Tablet PO PRN ×4 (02:41→21:54)
[2020-10-15] MEDS: Vancomycin HCl 750 MG in Sodium Chloride 0.9% 250 ML 250 ML IVPB SCH ×2 (10:27→20:40)
[2020-10-15] MEDS: Vancomycin HCl 500 MG in Sodium Chloride 0.9% 100 ML IVPB SCH ×2 (10:28→20:41)
[2020-10-15] MEDS: Aspirin Chewable 81 MG TAB PO SCH (10:29)
[2020-10-15] MEDS: Calcium Carbonate 600 MG + Vit D TAB PO SCH (10:29)
[2020-10-15] MEDS: metFORMIN 500 MG TAB PO SCH ×2 (10:29→17:16)
[2020-10-15] MEDS: Carvedilol 3.125 MG TAB PO SCH ×2 (10:29→17:16)
[2020-10-15] MEDS: Meloxicam 7.5 MG TAB PO SCH (10:29)
[2020-10-15] MEDS: Isosorbide Mononitrate 20 MG TAB PO SCH ×2 (10:29→20:39)
[2020-10-15] MEDS: Rifampin 300 MG CAP PO SCH ×2 (10:30→20:48)
[2020-10-15] MEDS: Multivit, Therapeutic 1 TAB PO SCH (10:30)
[2020-10-15] MEDS: Furosemide 20 MG TAB PO SCH (10:30)
[2020-10-15] MEDS: Atorvastatin Calcium 10 MG TAB PO SCH (12:01)
[2020-10-15] MEDS: Lisinopril 10 MG TAB PO SCH (12:01)
[2020-10-15 12:28] LABS: Vancomycin, Trough 12.8 ug/mL
[2020-10-16] MEDS: HYDROcodone/Acetaminophen 10/325 mg Tablet PO PRN ×3 (07:49→20:19)
[2020-10-16] MEDS: metFORMIN 500 MG TAB PO SCH ×2 (07:50→17:19)
[2020-10-16] MEDS: Carvedilol 3.125 MG TAB PO SCH ×2 (07:51→17:19)
[2020-10-16] MEDS: Aspirin Chewable 81 MG TAB PO SCH (08:52)
[2020-10-16] MEDS: Multivit, Therapeutic 1 TAB PO SCH (08:52)
[2020-10-16] MEDS: Isosorbide Mononitrate 20 MG TAB PO SCH ×2 (08:52→20:19)
[2020-10-16] MEDS: Ondansetron ODT 4 MG TAB PO PRN (08:52)
[2020-10-16] MEDS: Calcium Carbonate 600 MG + Vit D TAB PO SCH (08:52)
[2020-10-16] MEDS: Furosemide 20 MG TAB PO SCH (08:52)
[2020-10-16] MEDS: Meloxicam 7.5 MG TAB PO SCH (08:52)
[2020-10-16] MEDS: Vancomycin HCl 750 MG in Sodium Chloride 0.9% 250 ML 250 ML IVPB SCH ×2 (08:53→21:54)
[2020-10-16] MEDS: Rifampin 300 MG CAP PO SCH ×2 (09:04→20:21)
[2020-10-16] MEDS: Vancomycin HCl 500 MG in Sodium Chloride 0.9% 100 ML IVPB SCH ×2 (10:33→21:54)
[2020-10-16] MEDS: Atorvastatin Calcium 10 MG TAB PO SCH (12:32)
[2020-10-16] MEDS: Lisinopril 10 MG TAB PO SCH (12:32)
[2020-10-16] MEDS: Ibuprofen 200 MG TAB PO PRN (22:18)
[2020-10-17] MEDS: Ondansetron ODT 4 MG TAB PO PRN (07:34)
[2020-10-17] MEDS: HYDROcodone/Acetaminophen 10/325 mg Tablet PO PRN ×3 (07:34→20:26)
[2020-10-17] MEDS: Carvedilol 3.125 MG TAB PO SCH ×2 (09:02→16:28)
[2020-10-17] MEDS: Meloxicam 7.5 MG TAB PO SCH (09:03)
[2020-10-17] MEDS: Rifampin 300 MG CAP PO SCH ×2 (09:03→20:27)
[2020-10-17] MEDS: Calcium Carbonate 600 MG + Vit D TAB PO SCH (09:03)
[2020-10-17] MEDS: metFORMIN 500 MG TAB PO SCH ×2 (09:03→16:28)
[2020-10-17] MEDS: Furosemide 20 MG TAB PO SCH (09:03)
[2020-10-17] MEDS: Isosorbide Mononitrate 20 MG TAB PO SCH ×2 (09:03→20:25)
[2020-10-17] MEDS: Aspirin Chewable 81 MG TAB PO SCH (09:03)
[2020-10-17] MEDS: Multivit, Therapeutic 1 TAB PO SCH (09:03)
[2020-10-17] MEDS: Vancomycin HCl 750 MG in Sodium Chloride 0.9% 250 ML 250 ML IVPB SCH ×2 (09:05→20:24)
[2020-10-17] MEDS ORDERED: Fluconazole 100 MG TAB PO SCH (09:30)
[2020-10-17] MEDS: Vancomycin HCl 500 MG in Sodium Chloride 0.9% 100 ML IVPB SCH ×2 (10:36→20:29)
[2020-10-17] MEDS: Fluconazole 100 MG TAB PO SCH (10:37)
[2020-10-17] MEDS: Ibuprofen 200 MG TAB PO PRN ×2 (10:51→16:27)
[2020-10-17] MEDS: Lisinopril 10 MG TAB PO SCH (12:27)
[2020-10-17] MEDS: Clotrimazole 1% Cream 15 GM TUBE TOP SCH (20:56)
[2020-10-18] MEDS: Ibuprofen 200 MG TAB PO PRN ×2 (02:25→20:28)
[2020-10-18] MEDS: Carvedilol 3.125 MG TAB PO SCH ×2 (08:07→16:40)
[2020-10-18] MEDS: Aspirin Chewable 81 MG TAB PO SCH (08:08)
[2020-10-18] MEDS: Furosemide 20 MG TAB PO SCH (08:08)
[2020-10-18] MEDS: metFORMIN 500 MG TAB PO SCH ×2 (08:08→16:39)
[2020-10-18] MEDS: Fluconazole 100 MG TAB PO SCH (08:08)
[2020-10-18] MEDS: Isosorbide Mononitrate 20 MG TAB PO SCH ×2 (08:08→20:04)
[2020-10-18] MEDS: Calcium Carbonate 600 MG + Vit D TAB PO SCH (08:08)
[2020-10-18] MEDS: Meloxicam 7.5 MG TAB PO SCH (08:08)
[2020-10-18] MEDS: Multivit, Therapeutic 1 TAB PO SCH (08:08)
[2020-10-18] MEDS: Clotrimazole 1% Cream 15 GM TUBE TOP SCH ×2 (08:09→20:28)
[2020-10-18] MEDS: Vancomycin HCl 750 MG in Sodium Chloride 0.9% 250 ML 250 ML IVPB SCH ×2 (08:11→20:32)
[2020-10-18 08:22] LABS: Vancomycin, Trough 15.7 ug/mL
[2020-10-18] MEDS: Vancomycin HCl 500 MG in Sodium Chloride 0.9% 100 ML IVPB SCH ×2 (09:15→20:32)
[2020-10-18] MEDS: Rifampin 300 MG CAP PO SCH ×2 (09:16→20:30)
[2020-10-18] MEDS: Lisinopril 10 MG TAB PO SCH (12:06)
[2020-10-18] MEDS: HYDROcodone/Acetaminophen 10/325 mg Tablet PO PRN (15:38)
[2020-10-19] MEDS: HYDROcodone/Acetaminophen 10/325 mg Tablet PO PRN ×3 (07:47→23:16)
[2020-10-19] MEDS: metFORMIN 500 MG TAB PO SCH ×2 (07:47→17:01)
[2020-10-19] MEDS: Carvedilol 3.125 MG TAB PO SCH ×2 (07:47→17:01)
[2020-10-19] MEDS: Vancomycin HCl 750 MG in Sodium Chloride 0.9% 250 ML 250 ML IVPB SCH ×2 (08:19→20:12)
[2020-10-19] MEDS: Isosorbide Mononitrate 20 MG TAB PO SCH ×2 (08:32→20:00)
[2020-10-19] MEDS: Calcium Carbonate 600 MG + Vit D TAB PO SCH (08:32)
[2020-10-19] MEDS: Meloxicam 7.5 MG TAB PO SCH (08:32)
[2020-10-19] MEDS: Aspirin Chewable 81 MG TAB PO SCH (08:32)
[2020-10-19] MEDS: Furosemide 20 MG TAB PO SCH (08:33)
[2020-10-19] MEDS: Fluconazole 100 MG TAB PO SCH (08:33)
[2020-10-19] MEDS: Clotrimazole 1% Cream 15 GM TUBE TOP SCH ×2 (08:34→20:00)
[2020-10-19] MEDS: Multivit, Therapeutic 1 TAB PO SCH (08:34)
[2020-10-19] MEDS: Vancomycin HCl 500 MG in Sodium Chloride 0.9% 100 ML IVPB SCH ×2 (09:47→20:13)
[2020-10-19] MEDS: Rifampin 300 MG CAP PO SCH ×2 (09:48→20:09)
[2020-10-19] MEDS: Lisinopril 10 MG TAB PO SCH (12:29)
[2020-10-19] MEDS: Ibuprofen 200 MG TAB PO PRN ×2 (12:32→20:10)
[2020-10-20] MEDS: Vancomycin HCl 750 MG in Sodium Chloride 0.9% 250 ML 250 ML IVPB SCH ×2 (08:23→21:32)
[2020-10-20] MEDS: Carvedilol 3.125 MG TAB PO SCH ×2 (08:24→17:42)
[2020-10-20] MEDS: Multivit, Therapeutic 1 TAB PO SCH (08:24)
[2020-10-20] MEDS: Isosorbide Mononitrate 20 MG TAB PO SCH ×2 (08:24→20:06)
[2020-10-20] MEDS: metFORMIN 500 MG TAB PO SCH ×2 (08:24→17:41)
[2020-10-20] MEDS: Aspirin Chewable 81 MG TAB PO SCH (08:25)
[2020-10-20] MEDS: Meloxicam 7.5 MG TAB PO SCH (08:25)
[2020-10-20] MEDS: Calcium Carbonate 600 MG + Vit D TAB PO SCH (08:25)
[2020-10-20] MEDS: Furosemide 20 MG TAB PO SCH (08:25)
[2020-10-20] MEDS: Vancomycin HCl 500 MG in Sodium Chloride 0.9% 100 ML IVPB SCH ×2 (08:26→21:33)
[2020-10-20] MEDS: Clotrimazole 1% Cream 15 GM TUBE TOP SCH ×2 (08:27→20:07)
[2020-10-20] MEDS: Rifampin 300 MG CAP PO SCH ×2 (08:35→22:53)
[2020-10-20] MEDS: Atorvastatin Calcium 10 MG TAB PO SCH (12:06)
[2020-10-20] MEDS: Lisinopril 10 MG TAB PO SCH (12:06)
[2020-10-20] MEDS: HYDROcodone/Acetaminophen 10/325 mg Tablet PO PRN (13:58)
[2020-10-20] MEDS: Ibuprofen 200 MG TAB PO PRN (19:34)
[2020-10-21] MEDS: Isosorbide Mononitrate 20 MG TAB PO SCH ×2 (08:15→20:41)
[2020-10-21] MEDS: Carvedilol 3.125 MG TAB PO SCH ×2 (08:15→17:18)
[2020-10-21] MEDS: Meloxicam 7.5 MG TAB PO SCH (08:16)
[2020-10-21] MEDS: Furosemide 20 MG TAB PO SCH (08:16)
[2020-10-21] MEDS: metFORMIN 500 MG TAB PO SCH ×2 (08:16→17:17)
[2020-10-21] MEDS: Multivit, Therapeutic 1 TAB PO SCH (08:16)
[2020-10-21] MEDS: Calcium Carbonate 600 MG + Vit D TAB PO SCH (08:16)
[2020-10-21] MEDS: Aspirin Chewable 81 MG TAB PO SCH (08:16)
[2020-10-21] MEDS: Rifampin 300 MG CAP PO SCH ×2 (08:16→20:45)
[2020-10-21] MEDS: Vancomycin HCl 750 MG in Sodium Chloride 0.9% 250 ML 250 ML IVPB SCH ×2 (08:17→20:43)
[2020-10-21] MEDS: Clotrimazole 1% Cream 15 GM TUBE TOP SCH ×2 (08:17→20:45)
[2020-10-21] MEDS: Vancomycin HCl 500 MG in Sodium Chloride 0.9% 100 ML IVPB SCH ×2 (08:18→20:44)
[2020-10-21 08:52] LABS: Vancomycin, Trough 14.2 ug/mL
[2020-10-21 09:02] LABS: Chloride 100 mmol/L (98-107); Potassium 3.4 mmol/L (3.5-5.1); Sodium 138 mmol/L (136-145)
[2020-10-21 09:15] LABS: ALT (SGPT) 12 U/L (8-55); AST (SGOT) 13 U/L (5-34); Albumin 3.7 g/dL (3.4-4.8); Alkaline Phosphatase 82 U/L (40-110); Anion Gap 18 mmol/L (10-20); BUN (Urea Nitrogen) 8 mg/dL (9.8-20.1); Bilirubin, Total 0.3 mg/dL (0.2-1.2); Calc. Creatinine Clearance 111 mL/min (70-130); Calcium 9.2 mg/dL (7.8-10.44); Carbon Dioxide 26 mmol/L (23-31); Globulin 3.5 g/dL (2.4-3.5); Glucose 146 mg/dL (80-115); Protein, Total 7.2 g/dL (5.8-8.1)
[2020-10-21 09:28] LABS: #Basophils 0.1 thou/uL (0.0-0.2); #Eosinphils 0.2 thou/uL (0.0-0.7); #Lymphocytes 1.5 thou/uL (1.20-3.40); #Monocytes 0.8 thou/uL (0.11-0.59); #Neutrophils 6.2 thou/uL (1.40-6.50); %Basophils 1.3 % (0.0-1.0); %Eosinophils 2.6 % (0.0-10.0); %Lymphocytes 17.3 % (21.0-51.0); %Monocytes 9.3 % (0.0-10.0); %Neutrophils 69.5 % (42.0-75.0); Hemoglobin 9.7 g/dL (12.0-16.0); Mean Corpuscular HGB CONC 32.7 g/dL (32.0-36.0); Mean Corpuscular Hemoglobin 30.2 pg (27.0-31.0); Mean Corpuscular Volume 92.5 fL (78.0-98.0); Mean Platelet Volume 5.6 fL (7.4-10.4); Platelet Count 419 thou/uL (130-400); RBC Distribution Width 13.2 % (11.5-14.5); Red Blood Cell (RBC) Count 3.22 mill/uL (4.20-5.40); White Blood Cell (WBC) Count 8.9 thou/uL (4.8-10.8)
[2020-10-21] MEDS: Atorvastatin Calcium 10 MG TAB PO SCH (12:02)
[2020-10-21] MEDS: Lisinopril 10 MG TAB PO SCH (12:03)
[2020-10-21] MEDS: HYDROcodone/Acetaminophen 10/325 mg Tablet PO PRN ×2 (12:13→20:41)
[2020-10-22] MEDS: HYDROcodone/Acetaminophen 10/325 mg Tablet PO PRN ×3 (05:25→19:31)
[2020-10-22] MEDS: Vancomycin HCl 750 MG in Sodium Chloride 0.9% 250 ML 250 ML IVPB SCH ×2 (07:36→20:56)
[2020-10-22] MEDS: Furosemide 20 MG TAB PO SCH (07:39)
[2020-10-22] MEDS: Carvedilol 3.125 MG TAB PO SCH ×4 (07:39→17:23)
[2020-10-22] MEDS: Aspirin Chewable 81 MG TAB PO SCH (07:39)
[2020-10-22] MEDS: Calcium Carbonate 600 MG + Vit D TAB PO SCH (07:39)
[2020-10-22] MEDS: Multivit, Therapeutic 1 TAB PO SCH (07:39)
[2020-10-22] MEDS: Isosorbide Mononitrate 20 MG TAB PO SCH ×2 (07:39→20:55)
[2020-10-22] MEDS: Meloxicam 7.5 MG TAB PO SCH (07:40)
[2020-10-22] MEDS: metFORMIN 500 MG TAB PO SCH ×2 (07:41→17:16)
[2020-10-22] MEDS: Clotrimazole 1% Cream 15 GM TUBE TOP SCH ×2 (07:41→20:58)
[2020-10-22] MEDS: Vancomycin HCl 500 MG in Sodium Chloride 0.9% 100 ML IVPB SCH ×2 (07:47→21:04)
[2020-10-22] MEDS: Ondansetron ODT 4 MG TAB PO PRN (07:58)
[2020-10-22] MEDS: Rifampin 300 MG CAP PO SCH ×2 (09:12→21:04)
[2020-10-22] MEDS: Lisinopril 10 MG TAB PO SCH (12:50)
[2020-10-22] MEDS: Atorvastatin Calcium 10 MG TAB PO SCH (12:50)
[2020-10-22] MEDS: Ibuprofen 200 MG TAB PO PRN (23:12)
[2020-10-23] MEDS: HYDROcodone/Acetaminophen 10/325 mg Tablet PO PRN ×3 (03:53→21:19)
[2020-10-23] MEDS: Ibuprofen 200 MG TAB PO PRN ×2 (09:07→17:45)
[2020-10-23] MEDS: Multivit, Therapeutic 1 TAB PO SCH (09:08)
[2020-10-23] MEDS: Rifampin 300 MG CAP PO SCH ×2 (09:08→21:20)
[2020-10-23] MEDS: Furosemide 20 MG TAB PO SCH (09:08)
[2020-10-23] MEDS: metFORMIN 500 MG TAB PO SCH ×2 (09:08→16:33)
[2020-10-23] MEDS: Meloxicam 7.5 MG TAB PO SCH (09:08)
[2020-10-23] MEDS: Aspirin Chewable 81 MG TAB PO SCH (09:09)
[2020-10-23] MEDS: Calcium Carbonate 600 MG + Vit D TAB PO SCH (09:09)
[2020-10-23] MEDS: Isosorbide Mononitrate 20 MG TAB PO SCH ×2 (09:09→21:20)
[2020-10-23] MEDS: Clotrimazole 1% Cream 15 GM TUBE TOP SCH ×2 (09:09→21:21)
[2020-10-23] MEDS: Carvedilol 3.125 MG TAB PO SCH ×2 (09:09→16:32)
[2020-10-23] MEDS: Vancomycin HCl 500 MG in Sodium Chloride 0.9% 100 ML IVPB SCH ×2 (09:10→21:22)
[2020-10-23] MEDS: Vancomycin HCl 750 MG in Sodium Chloride 0.9% 250 ML 250 ML IVPB SCH ×2 (09:13→21:21)
[2020-10-23] MEDS: Atorvastatin Calcium 10 MG TAB PO SCH (11:49)
[2020-10-23] MEDS: Lisinopril 10 MG TAB PO SCH (11:49)
[2020-10-24] MEDS: Ibuprofen 200 MG TAB PO PRN ×2 (04:06→16:19)
[2020-10-24] MEDS: HYDROcodone/Acetaminophen 10/325 mg Tablet PO PRN ×2 (07:46→21:53)
[2020-10-24] MEDS: Aspirin Chewable 81 MG TAB PO SCH (08:43)
[2020-10-24] MEDS: Meloxicam 7.5 MG TAB PO SCH (08:43)
[2020-10-24] MEDS: Clotrimazole 1% Cream 15 GM TUBE TOP SCH ×2 (08:43→21:34)
[2020-10-24] MEDS: Multivit, Therapeutic 1 TAB PO SCH (08:43)
[2020-10-24] MEDS: Calcium Carbonate 600 MG + Vit D TAB PO SCH (08:43)
[2020-10-24] MEDS: metFORMIN 500 MG TAB PO SCH ×2 (08:43→17:18)
[2020-10-24] MEDS: Isosorbide Mononitrate 20 MG TAB PO SCH ×2 (08:43→21:34)
[2020-10-24] MEDS: Furosemide 20 MG TAB PO SCH (08:43)
[2020-10-24] MEDS: Vancomycin HCl 750 MG in Sodium Chloride 0.9% 250 ML 250 ML IVPB SCH ×2 (08:44→21:33)
[2020-10-24] MEDS: Vancomycin HCl 500 MG in Sodium Chloride 0.9% 100 ML IVPB SCH ×2 (08:45→21:33)
[2020-10-24] MEDS: Carvedilol 3.125 MG TAB PO SCH ×2 (08:46→17:18)
[2020-10-24] MEDS: Rifampin 300 MG CAP PO SCH ×2 (10:37→21:34)
[2020-10-24] MEDS: Atorvastatin Calcium 10 MG TAB PO SCH (11:52)
[2020-10-24] MEDS: Lisinopril 10 MG TAB PO SCH (11:52)
[2020-10-25] MEDS: Ibuprofen 200 MG TAB PO PRN ×2 (02:57→15:00)
[2020-10-25] MEDS: HYDROcodone/Acetaminophen 10/325 mg Tablet PO PRN ×2 (08:11→21:17)
[2020-10-25] MEDS: Multivit, Therapeutic 1 TAB PO SCH (08:12)
[2020-10-25] MEDS: Furosemide 20 MG TAB PO SCH (08:12)
[2020-10-25] MEDS: Aspirin Chewable 81 MG TAB PO SCH (08:12)
[2020-10-25] MEDS: Carvedilol 3.125 MG TAB PO SCH ×2 (08:12→17:21)
[2020-10-25] MEDS: Calcium Carbonate 600 MG + Vit D TAB PO SCH (08:12)
[2020-10-25] MEDS: Isosorbide Mononitrate 20 MG TAB PO SCH ×2 (08:13→21:17)
[2020-10-25] MEDS: Meloxicam 7.5 MG TAB PO SCH (08:13)
[2020-10-25] MEDS: metFORMIN 500 MG TAB PO SCH ×2 (08:13→17:21)
[2020-10-25] MEDS: Vancomycin HCl 500 MG in Sodium Chloride 0.9% 100 ML IVPB SCH ×2 (08:14→21:16)
[2020-10-25] MEDS: Vancomycin HCl 750 MG in Sodium Chloride 0.9% 250 ML 250 ML IVPB SCH ×2 (08:15→21:15)
[2020-10-25] MEDS: Clotrimazole 1% Cream 15 GM TUBE TOP SCH ×2 (08:16→21:15)
[2020-10-25] MEDS: Rifampin 300 MG CAP PO SCH ×2 (09:53→21:16)
[2020-10-25] MEDS: Lisinopril 20 MG TAB PO SCH (12:48)
[2020-10-25] MEDS: Atorvastatin Calcium 10 MG TAB PO SCH (12:48)
[2020-10-26] MEDS: Ibuprofen 200 MG TAB PO PRN (04:42)
[2020-10-26] MEDS: Ondansetron ODT 4 MG TAB PO PRN (07:06)
[2020-10-26] MEDS: Vancomycin HCl 750 MG in Sodium Chloride 0.9% 250 ML 250 ML IVPB SCH ×2 (08:05→20:40)
[2020-10-26] MEDS: HYDROcodone/Acetaminophen 10/325 mg Tablet PO PRN ×2 (08:09→20:40)
[2020-10-26] MEDS: Vancomycin HCl 500 MG in Sodium Chloride 0.9% 100 ML IVPB SCH ×2 (08:10→20:40)
[2020-10-26] MEDS: Furosemide 20 MG TAB PO SCH (08:11)
[2020-10-26] MEDS: metFORMIN 500 MG TAB PO SCH ×2 (08:11→16:48)
[2020-10-26] MEDS: Aspirin Chewable 81 MG TAB PO SCH (08:11)
[2020-10-26] MEDS: Meloxicam 7.5 MG TAB PO SCH (08:12)
[2020-10-26] MEDS: Calcium Carbonate 600 MG + Vit D TAB PO SCH (08:13)
[2020-10-26] MEDS: Carvedilol 3.125 MG TAB PO SCH ×2 (08:13→16:48)
[2020-10-26] MEDS: Multivit, Therapeutic 1 TAB PO SCH (08:13)
[2020-10-26] MEDS: Clotrimazole 1% Cream 15 GM TUBE TOP SCH ×2 (08:14→20:40)
[2020-10-26] MEDS: Isosorbide Mononitrate 20 MG TAB PO SCH ×2 (08:14→20:40)
[2020-10-26 08:53] LABS: Vancomycin, Trough 20.3 ug/mL
[2020-10-26] MEDS: Rifampin 300 MG CAP PO SCH ×2 (10:07→20:40)
[2020-10-26] MEDS: Lisinopril 20 MG TAB PO SCH (11:52)
[2020-10-26] MEDS: Atorvastatin Calcium 10 MG TAB PO SCH (11:52)
[2020-10-27] MEDS: Isosorbide Mononitrate 20 MG TAB PO SCH ×2 (08:10→20:26)
[2020-10-27] MEDS: Carvedilol 3.125 MG TAB PO SCH ×2 (08:10→17:15)
[2020-10-27] MEDS: Aspirin Chewable 81 MG TAB PO SCH (08:10)
[2020-10-27] MEDS: Multivit, Therapeutic 1 TAB PO SCH (08:11)
[2020-10-27] MEDS: metFORMIN 500 MG TAB PO SCH ×2 (08:11→17:15)
[2020-10-27] MEDS: Vancomycin HCl 750 MG in Sodium Chloride 0.9% 250 ML 250 ML IVPB SCH ×2 (08:11→20:25)
[2020-10-27] MEDS: Calcium Carbonate 600 MG + Vit D TAB PO SCH (08:11)
[2020-10-27] MEDS: Furosemide 20 MG TAB PO SCH (08:11)
[2020-10-27] MEDS: Vancomycin HCl 500 MG in Sodium Chloride 0.9% 100 ML IVPB SCH ×2 (08:12→21:39)
[2020-10-27] MEDS: Clotrimazole 1% Cream 15 GM TUBE TOP SCH ×2 (08:22→20:26)
[2020-10-27] MEDS: Rifampin 300 MG CAP PO SCH ×2 (10:53→21:39)
[2020-10-27] MEDS: Lisinopril 20 MG TAB PO SCH (11:47)
[2020-10-27] MEDS: Atorvastatin Calcium 10 MG TAB PO SCH (11:47)
[2020-10-27] MEDS: HYDROcodone/Acetaminophen 10/325 mg Tablet PO PRN (14:34)
[2020-10-27] MEDS: Ibuprofen 200 MG TAB PO PRN (18:16)
[2020-10-28 06:07] LABS: ALT (SGPT) 13 U/L (8-55); AST (SGOT) 14 U/L (5-34); Albumin 3.6 g/dL (3.4-4.8); Alkaline Phosphatase 76 U/L (40-110); Anion Gap 13 mmol/L (10-20); BUN (Urea Nitrogen) 9 mg/dL (9.8-20.1); Bilirubin, Total 0.3 mg/dL (0.2-1.2); CRP (Inflammatory) 4.06 mg/dL (= or < 0.5); Calc. Creatinine Clearance 111 mL/min (70-130); Calcium 9.3 mg/dL (7.8-10.44); Carbon Dioxide 31 mmol/L (23-31); Chloride 104 mmol/L (98-107); Globulin 3.3 g/dL (2.4-3.5); Glucose 119 mg/dL (80-115); Potassium 3.8 mmol/L (3.5-5.1); Protein, Total 6.9 g/dL (5.8-8.1); Sodium 144 mmol/L (136-145)
[2020-10-28 06:18] LABS: #Basophils 0.1 thou/uL (0.0-0.2); #Eosinphils 0.4 thou/uL (0.0-0.7); #Lymphocytes 1.8 thou/uL (1.20-3.40); #Monocytes 0.9 thou/uL (0.11-0.59); #Neutrophils 4.1 thou/uL (1.40-6.50); %Basophils 1.6 % (0.0-1.0); %Eosinophils 5.1 % (0.0-10.0); %Lymphocytes 24.6 % (21.0-51.0); %Monocytes 12.4 % (0.0-10.0); %Neutrophils 56.4 % (42.0-75.0); Hemoglobin 9.9 g/dL (12.0-16.0); Mean Corpuscular HGB CONC 32.2 g/dL (32.0-36.0); Mean Corpuscular Hemoglobin 29.9 pg (27.0-31.0); Mean Corpuscular Volume 92.9 fL (78.0-98.0); Mean Platelet Volume 6.2 fL (7.4-10.4); Platelet Count 283 thou/uL (130-400); RBC Distribution Width 13.2 % (11.5-14.5); Red Blood Cell (RBC) Count 3.31 mill/uL (4.20-5.40); White Blood Cell (WBC) Count 7.3 thou/uL (4.8-10.8)
[2020-10-28] MEDS: Aspirin Chewable 81 MG TAB PO SCH (08:43)
[2020-10-28] MEDS: Multivit, Therapeutic 1 TAB PO SCH (08:43)
[2020-10-28] MEDS: Furosemide 20 MG TAB PO SCH (08:43)
[2020-10-28] MEDS: metFORMIN 500 MG TAB PO SCH ×2 (08:43→17:19)
[2020-10-28] MEDS: Carvedilol 3.125 MG TAB PO SCH ×2 (08:43→17:19)
[2020-10-28] MEDS: Isosorbide Mononitrate 20 MG TAB PO SCH ×2 (08:44→21:03)
[2020-10-28] MEDS: Calcium Carbonate 600 MG + Vit D TAB PO SCH (08:44)
[2020-10-28] MEDS: Clotrimazole 1% Cream 15 GM TUBE TOP SCH ×2 (08:44→21:22)
[2020-10-28] MEDS: Vancomycin HCl 750 MG in Sodium Chloride 0.9% 250 ML 250 ML IVPB SCH ×2 (08:45→21:04)
[2020-10-28] MEDS: Vancomycin HCl 500 MG in Sodium Chloride 0.9% 100 ML IVPB SCH ×2 (08:52→22:18)
[2020-10-28] MEDS: Rifampin 300 MG CAP PO SCH ×2 (10:07→21:03)
[2020-10-28] MEDS: Atorvastatin Calcium 10 MG TAB PO SCH (12:01)
[2020-10-28] MEDS: Lisinopril 20 MG TAB PO SCH (12:02)
[2020-10-28] MEDS: HYDROcodone/Acetaminophen 10/325 mg Tablet PO PRN (15:05)
[2020-10-28] MEDS: Ibuprofen 200 MG TAB PO PRN (21:02)
[2020-10-28] MEDS: Ondansetron ODT 4 MG TAB PO PRN (21:21)
[2020-10-29 08:14] LABS: Vancomycin, Trough 15.5 ug/mL
[2020-10-29] MEDS: HYDROcodone/Acetaminophen 10/325 mg Tablet PO PRN ×2 (09:42→19:54)
[2020-10-29] MEDS: metFORMIN 500 MG TAB PO SCH ×2 (09:43→17:08)
[2020-10-29] MEDS: Multivit, Therapeutic 1 TAB PO SCH (09:43)
[2020-10-29] MEDS: Rifampin 300 MG CAP PO SCH ×2 (09:43→21:39)
[2020-10-29] MEDS: Calcium Carbonate 600 MG + Vit D TAB PO SCH (09:44)
[2020-10-29] MEDS: Aspirin Chewable 81 MG TAB PO SCH (09:44)
[2020-10-29] MEDS: Carvedilol 3.125 MG TAB PO SCH ×2 (09:44→17:08)
[2020-10-29] MEDS: Furosemide 20 MG TAB PO SCH (09:44)
[2020-10-29] MEDS: Isosorbide Mononitrate 20 MG TAB PO SCH ×2 (09:44→20:30)
[2020-10-29] MEDS: Clotrimazole 1% Cream 15 GM TUBE TOP SCH ×2 (09:45→20:31)
[2020-10-29] MEDS: Vancomycin HCl 750 MG in Sodium Chloride 0.9% 250 ML 250 ML IVPB SCH ×2 (09:47→20:32)
[2020-10-29] MEDS: Vancomycin HCl 500 MG in Sodium Chloride 0.9% 100 ML IVPB SCH ×2 (09:48→21:37)
[2020-10-29] MEDS: Lisinopril 20 MG TAB PO SCH (12:21)
[2020-10-29] MEDS: Ondansetron ODT 4 MG TAB PO PRN (12:21)
[2020-10-29] MEDS: Atorvastatin Calcium 10 MG TAB PO SCH (12:21)
[2020-10-29] MEDS ORDERED: Vancomycin HCl 750 MG VIAL ONE (19:49)
[2020-10-29] MEDS ORDERED: Vancomycin HCl 500 MG VIAL ONE (19:49)
[2020-10-30] MEDS: Ibuprofen 200 MG TAB PO PRN (01:26)
[2020-10-30] MEDS: Aspirin Chewable 81 MG TAB PO SCH (08:40)
[2020-10-30] MEDS: Rifampin 300 MG CAP PO SCH ×2 (08:41→22:20)
[2020-10-30] MEDS: Carvedilol 3.125 MG TAB PO SCH ×2 (08:42→17:11)
[2020-10-30] MEDS: Furosemide 20 MG TAB PO SCH (08:42)
[2020-10-30] MEDS: Isosorbide Mononitrate 20 MG TAB PO SCH ×2 (08:42→22:20)
[2020-10-30] MEDS: metFORMIN 500 MG TAB PO SCH ×2 (08:42→17:12)
[2020-10-30] MEDS: Multivit, Therapeutic 1 TAB PO SCH (08:42)
[2020-10-30] MEDS: Calcium Carbonate 600 MG + Vit D TAB PO SCH (08:42)
[2020-10-30] MEDS: Clotrimazole 1% Cream 15 GM TUBE TOP SCH ×2 (08:43→22:20)
[2020-10-30] MEDS: Vancomycin HCl 750 MG in Sodium Chloride 0.9% 250 ML 250 ML IVPB SCH ×2 (08:44→22:21)
[2020-10-30] MEDS: HYDROcodone/Acetaminophen 10/325 mg Tablet PO PRN ×2 (09:07→22:26)
[2020-10-30] MEDS: Ondansetron ODT 4 MG TAB PO PRN (10:29)
[2020-10-30] MEDS: Vancomycin HCl 500 MG in Sodium Chloride 0.9% 100 ML IVPB SCH ×2 (10:34→22:22)
[2020-10-30] MEDS: Atorvastatin Calcium 10 MG TAB PO SCH (12:34)
[2020-10-30] MEDS: Lisinopril 20 MG TAB PO SCH (12:34)
[2020-10-30 23:52] LABS: SARS-CoV-2 NAA Rapid Test Not Detected (NotDetected)
[2020-10-31] MEDS: HYDROcodone/Acetaminophen 10/325 mg Tablet PO PRN ×2 (08:29→16:42)
[2020-10-31] MEDS: Isosorbide Mononitrate 20 MG TAB PO SCH ×2 (08:30→20:08)
[2020-10-31] MEDS: Calcium Carbonate 600 MG + Vit D TAB PO SCH (08:31)
[2020-10-31] MEDS: metFORMIN 500 MG TAB PO SCH ×2 (08:31→16:42)
[2020-10-31] MEDS: Multivit, Therapeutic 1 TAB PO SCH (08:31)
[2020-10-31] MEDS: Furosemide 20 MG TAB PO SCH (08:31)
[2020-10-31] MEDS: Carvedilol 3.125 MG TAB PO SCH ×2 (08:31→16:42)
[2020-10-31] MEDS: Aspirin Chewable 81 MG TAB PO SCH (08:32)
[2020-10-31] MEDS: Vancomycin HCl 750 MG in Sodium Chloride 0.9% 250 ML 250 ML IVPB SCH ×2 (08:50→20:04)
[2020-10-31] MEDS: Clotrimazole 1% Cream 15 GM TUBE TOP SCH ×2 (09:01→20:07)
[2020-10-31] MEDS: Rifampin 300 MG CAP PO SCH ×2 (10:11→21:19)
[2020-10-31] MEDS: Vancomycin HCl 500 MG in Sodium Chloride 0.9% 100 ML IVPB SCH ×2 (10:12→21:19)
[2020-10-31] MEDS: Atorvastatin Calcium 10 MG TAB PO SCH (12:14)
[2020-10-31] MEDS: Lisinopril 20 MG TAB PO SCH (12:14)
[2020-10-31] MEDS: Ibuprofen 200 MG TAB PO PRN ×2 (12:16→20:07)
[2020-11-01 08:16] LABS: Vancomycin, Trough 12.8 ug/mL
[2020-11-01] MEDS: Aspirin Chewable 81 MG TAB PO SCH (08:22)
[2020-11-01] MEDS: Multivit, Therapeutic 1 TAB PO SCH (08:22)
[2020-11-01] MEDS: Clotrimazole 1% Cream 15 GM TUBE TOP SCH ×2 (08:23→21:51)
[2020-11-01] MEDS: Carvedilol 3.125 MG TAB PO SCH ×2 (08:23→16:24)
[2020-11-01] MEDS: Furosemide 20 MG TAB PO SCH (08:23)
[2020-11-01] MEDS: metFORMIN 500 MG TAB PO SCH ×2 (08:23→16:24)
[2020-11-01] MEDS: Isosorbide Mononitrate 20 MG TAB PO SCH ×2 (08:23→21:48)
[2020-11-01] MEDS: Calcium Carbonate 600 MG + Vit D TAB PO SCH (08:23)
[2020-11-01] MEDS: Vancomycin HCl 750 MG in Sodium Chloride 0.9% 250 ML 250 ML IVPB SCH ×2 (08:24→21:49)
[2020-11-01] MEDS: HYDROcodone/Acetaminophen 10/325 mg Tablet PO PRN ×3 (09:04→21:47)
[2020-11-01] MEDS: Rifampin 300 MG CAP PO SCH ×2 (09:04→21:48)
[2020-11-01] MEDS: Vancomycin HCl 500 MG in Sodium Chloride 0.9% 100 ML IVPB SCH ×2 (09:05→21:50)
[2020-11-01] MEDS: Lisinopril 20 MG TAB PO SCH (12:02)
[2020-11-01] MEDS: Atorvastatin Calcium 10 MG TAB PO SCH (12:02)
[2020-11-01] MEDS: Ibuprofen 200 MG TAB PO PRN (14:57)
[2020-11-01] MEDS ORDERED: HYDROcodone/Acetaminophen 10/325 mg Tablet PO SCH (17:45)
[2020-11-01] MEDS ORDERED: Gabapentin 100 MG CAP PO SCH (17:45)
[2020-11-02] MEDS: Ibuprofen 200 MG TAB PO PRN ×2 (03:00→19:28)
[2020-11-02] MEDS: HYDROcodone/Acetaminophen 10/325 mg Tablet PO PRN ×3 (05:29→22:05)
[2020-11-02] MEDS: Gabapentin 100 MG CAP PO SCH ×2 (08:52→21:52)
[2020-11-02] MEDS: Vancomycin HCl 750 MG in Sodium Chloride 0.9% 250 ML 250 ML IVPB SCH ×2 (08:53→21:55)
[2020-11-02] MEDS: metFORMIN 500 MG TAB PO SCH ×2 (08:53→17:49)
[2020-11-02] MEDS: Aspirin Chewable 81 MG TAB PO SCH (08:53)
[2020-11-02] MEDS: Multivit, Therapeutic 1 TAB PO SCH (08:53)
[2020-11-02] MEDS: Furosemide 20 MG TAB PO SCH (08:53)
[2020-11-02] MEDS: Calcium Carbonate 600 MG + Vit D TAB PO SCH (08:53)
[2020-11-02] MEDS: Clotrimazole 1% Cream 15 GM TUBE TOP SCH ×2 (08:54→21:58)
[2020-11-02] MEDS: Carvedilol 3.125 MG TAB PO SCH ×2 (08:54→17:49)
[2020-11-02] MEDS: Isosorbide Mononitrate 20 MG TAB PO SCH ×2 (08:55→21:53)
[2020-11-02] MEDS: Vancomycin HCl 500 MG in Sodium Chloride 0.9% 100 ML IVPB SCH ×2 (10:35→21:53)
[2020-11-02] MEDS: Rifampin 300 MG CAP PO SCH ×2 (10:36→21:53)
[2020-11-02] MEDS: Atorvastatin Calcium 10 MG TAB PO SCH (12:05)
[2020-11-02] MEDS: Lisinopril 20 MG TAB PO SCH (12:05)
[2020-11-03] MEDS: HYDROcodone/Acetaminophen 10/325 mg Tablet PO PRN ×3 (04:33→21:41)
[2020-11-03] MEDS: Ibuprofen 200 MG TAB PO PRN ×2 (06:23→20:11)
[2020-11-03] MEDS: Carvedilol 3.125 MG TAB PO SCH ×2 (08:13→16:54)
[2020-11-03] MEDS: Furosemide 20 MG TAB PO SCH (08:13)
[2020-11-03] MEDS: Calcium Carbonate 600 MG + Vit D TAB PO SCH (08:13)
[2020-11-03] MEDS: Isosorbide Mononitrate 20 MG TAB PO SCH ×2 (08:13→20:12)
[2020-11-03] MEDS: metFORMIN 500 MG TAB PO SCH ×2 (08:13→16:54)
[2020-11-03] MEDS: Multivit, Therapeutic 1 TAB PO SCH (08:13)
[2020-11-03] MEDS: Aspirin Chewable 81 MG TAB PO SCH (08:13)
[2020-11-03] MEDS: Gabapentin 100 MG CAP PO SCH ×2 (08:19→20:06)
[2020-11-03] MEDS: Clotrimazole 1% Cream 15 GM TUBE TOP SCH ×2 (08:20→20:12)
[2020-11-03 08:28] LABS: Vancomycin, Trough 15.8 ug/mL
[2020-11-03 08:33] LABS: ALT (SGPT) 18 U/L (8-55); AST (SGOT) 14 U/L (5-34); Albumin 3.9 g/dL (3.4-4.8); Alkaline Phosphatase 80 U/L (40-110); Anion Gap 13 mmol/L (10-20); BUN (Urea Nitrogen) 9 mg/dL (9.8-20.1); Bilirubin, Total 0.3 mg/dL (0.2-1.2); Calc. Creatinine Clearance 110 mL/min (70-130); Calcium 9.7 mg/dL (7.8-10.44); Carbon Dioxide 29 mmol/L (23-31); Chloride 103 mmol/L (98-107); Globulin 3.6 g/dL (2.4-3.5); Glucose 144 mg/dL (80-115); Potassium 3.8 mmol/L (3.5-5.1); Protein, Total 7.5 g/dL (5.8-8.1); Sodium 141 mmol/L (136-145)
[2020-11-03] MEDS: Vancomycin HCl 750 MG in Sodium Chloride 0.9% 250 ML 250 ML IVPB SCH ×2 (09:10→20:13)
[2020-11-03] MEDS: Vancomycin HCl 500 MG in Sodium Chloride 0.9% 100 ML IVPB SCH ×2 (10:46→21:42)
[2020-11-03] MEDS: Rifampin 300 MG CAP PO SCH ×2 (10:47→21:42)
[2020-11-03] MEDS: Lisinopril 20 MG TAB PO SCH (12:04)
[2020-11-03] MEDS: Atorvastatin Calcium 10 MG TAB PO SCH (12:04)
[2020-11-04 06:58] LABS: #Basophils 0.1 thou/uL (0.0-0.2); #Eosinphils 0.4 thou/uL (0.0-0.7); #Lymphocytes 1.5 thou/uL (1.20-3.40); #Monocytes 0.7 thou/uL (0.11-0.59); #Neutrophils 3.9 thou/uL (1.40-6.50); %Basophils 1.8 % (0.0-1.0); %Eosinophils 6.4 % (0.0-10.0); %Lymphocytes 22.7 % (21.0-51.0); %Monocytes 10.5 % (0.0-10.0); %Neutrophils 58.6 % (42.0-75.0); Hemoglobin 10.5 g/dL (12.0-16.0); Mean Corpuscular HGB CONC 31.8 g/dL (32.0-36.0); Mean Corpuscular Hemoglobin 29.3 pg (27.0-31.0); Mean Corpuscular Volume 92.1 fL (78.0-98.0); Mean Platelet Volume 5.9 fL (7.4-10.4); Platelet Count 355 thou/uL (130-400); RBC Distribution Width 13.3 % (11.5-14.5); Red Blood Cell (RBC) Count 3.57 mill/uL (4.20-5.40); White Blood Cell (WBC) Count 6.7 thou/uL (4.8-10.8)
[2020-11-04] MEDS: Isosorbide Mononitrate 20 MG TAB PO SCH ×2 (08:42→20:15)
[2020-11-04] MEDS: Vancomycin HCl 500 MG in Sodium Chloride 0.9% 100 ML IVPB SCH ×2 (08:42→21:21)
[2020-11-04] MEDS: Rifampin 300 MG CAP PO SCH ×2 (08:42→21:21)
[2020-11-04] MEDS: Vancomycin HCl 750 MG in Sodium Chloride 0.9% 250 ML 250 ML IVPB SCH ×2 (08:42→20:13)
[2020-11-04] MEDS: Aspirin Chewable 81 MG TAB PO SCH (08:42)
[2020-11-04] MEDS: Furosemide 20 MG TAB PO SCH (08:43)
[2020-11-04] MEDS: Multivit, Therapeutic 1 TAB PO SCH (08:43)
[2020-11-04] MEDS: Clotrimazole 1% Cream 15 GM TUBE TOP SCH ×2 (08:44→20:15)
[2020-11-04] MEDS: Carvedilol 3.125 MG TAB PO SCH ×2 (08:44→16:56)
[2020-11-04] MEDS: Calcium Carbonate 600 MG + Vit D TAB PO SCH (08:44)
[2020-11-04] MEDS: metFORMIN 500 MG TAB PO SCH ×2 (08:44→16:56)
[2020-11-04] MEDS: Gabapentin 100 MG CAP PO SCH ×2 (08:44→20:14)
[2020-11-04] MEDS: Atorvastatin Calcium 10 MG TAB PO SCH (11:14)
[2020-11-04] MEDS: Lisinopril 20 MG TAB PO SCH (11:14)
[2020-11-04] MEDS: HYDROcodone/Acetaminophen 10/325 mg Tablet PO PRN ×2 (11:15→16:56)
[2020-11-05] MEDS: HYDROcodone/Acetaminophen 10/325 mg Tablet PO PRN ×3 (01:59→21:53)
[2020-11-05] MEDS: Ondansetron ODT 4 MG TAB PO PRN (07:05)
[2020-11-05] MEDS: Multivit, Therapeutic 1 TAB PO SCH (09:48)
[2020-11-05] MEDS: Furosemide 20 MG TAB PO SCH (09:48)
[2020-11-05] MEDS: Isosorbide Mononitrate 20 MG TAB PO SCH ×2 (09:49→21:50)
[2020-11-05] MEDS: metFORMIN 500 MG TAB PO SCH ×2 (09:49→17:32)
[2020-11-05] MEDS: Gabapentin 100 MG CAP PO SCH ×2 (09:49→21:49)
[2020-11-05] MEDS: Calcium Carbonate 600 MG + Vit D TAB PO SCH (09:49)
[2020-11-05] MEDS: Aspirin Chewable 81 MG TAB PO SCH (09:49)
[2020-11-05] MEDS: Carvedilol 3.125 MG TAB PO SCH ×2 (09:49→17:32)
[2020-11-05] MEDS: Vancomycin HCl 500 MG in Sodium Chloride 0.9% 100 ML IVPB SCH ×2 (09:50→21:51)
[2020-11-05] MEDS: Vancomycin HCl 750 MG in Sodium Chloride 0.9% 250 ML 250 ML IVPB SCH ×2 (09:54→21:51)
[2020-11-05] MEDS: Clotrimazole 1% Cream 15 GM TUBE TOP SCH ×2 (09:56→21:52)
[2020-11-05] MEDS: Rifampin 300 MG CAP PO SCH ×2 (10:08→21:49)
[2020-11-05] MEDS: Lisinopril 20 MG TAB PO SCH (12:03)
[2020-11-05] MEDS: Atorvastatin Calcium 10 MG TAB PO SCH (12:03)
[2020-11-06] MEDS: Vancomycin HCl 750 MG in Sodium Chloride 0.9% 250 ML 250 ML IVPB SCH ×2 (08:12→20:16)
[2020-11-06] MEDS: Calcium Carbonate 600 MG + Vit D TAB PO SCH (08:13)
[2020-11-06] MEDS: Multivit, Therapeutic 1 TAB PO SCH (08:13)
[2020-11-06] MEDS: Vancomycin HCl 500 MG in Sodium Chloride 0.9% 100 ML IVPB SCH ×2 (08:13→20:16)
[2020-11-06] MEDS: Isosorbide Mononitrate 20 MG TAB PO SCH ×2 (08:13→20:16)
[2020-11-06] MEDS: Gabapentin 100 MG CAP PO SCH ×2 (08:14→20:16)
[2020-11-06] MEDS: Furosemide 20 MG TAB PO SCH (08:14)
[2020-11-06] MEDS: Aspirin Chewable 81 MG TAB PO SCH (08:15)
[2020-11-06] MEDS: Carvedilol 3.125 MG TAB PO SCH ×2 (08:15→17:08)
[2020-11-06] MEDS: Clotrimazole 1% Cream 15 GM TUBE TOP SCH ×3 (08:15→23:05)
[2020-11-06] MEDS: metFORMIN 500 MG TAB PO SCH ×2 (08:15→17:08)
[2020-11-06] MEDS: Rifampin 300 MG CAP PO SCH ×2 (08:16→22:30)
[2020-11-06 08:23] LABS: Vancomycin, Trough 18.9 ug/mL
[2020-11-06] MEDS: Lisinopril 20 MG TAB PO SCH (12:20)
[2020-11-06] MEDS: Atorvastatin Calcium 10 MG TAB PO SCH (12:20)
[2020-11-06] MEDS: HYDROcodone/Acetaminophen 10/325 mg Tablet PO PRN ×2 (12:25→20:17)
[2020-11-06] MEDS: Ibuprofen 200 MG TAB PO PRN (22:11)
[2020-11-07] MEDS: HYDROcodone/Acetaminophen 10/325 mg Tablet PO PRN ×3 (02:39→21:47)
[2020-11-07] MEDS: Ibuprofen 200 MG TAB PO PRN ×2 (05:21→16:18)
[2020-11-07] MEDS: Gabapentin 100 MG CAP PO SCH ×2 (08:45→21:49)
[2020-11-07] MEDS: metFORMIN 500 MG TAB PO SCH ×2 (08:45→16:18)
[2020-11-07] MEDS: Calcium Carbonate 600 MG + Vit D TAB PO SCH (08:45)
[2020-11-07] MEDS: Multivit, Therapeutic 1 TAB PO SCH (08:45)
[2020-11-07] MEDS: Furosemide 20 MG TAB PO SCH (08:45)
[2020-11-07] MEDS: Aspirin Chewable 81 MG TAB PO SCH (08:45)
[2020-11-07] MEDS: Carvedilol 3.125 MG TAB PO SCH ×2 (08:45→16:18)
[2020-11-07] MEDS: Isosorbide Mononitrate 20 MG TAB PO SCH ×2 (08:45→21:47)
[2020-11-07] MEDS: Rifampin 300 MG CAP PO SCH ×2 (08:45→21:49)
[2020-11-07] MEDS: Vancomycin HCl 750 MG in Sodium Chloride 0.9% 250 ML 250 ML IVPB SCH ×2 (08:46→21:51)
[2020-11-07] MEDS: Vancomycin HCl 500 MG in Sodium Chloride 0.9% 100 ML IVPB SCH ×2 (08:47→21:50)
[2020-11-07] MEDS: Ondansetron ODT 4 MG TAB PO PRN ×2 (10:41→16:18)
[2020-11-07] MEDS: Atorvastatin Calcium 10 MG TAB PO SCH (11:50)
[2020-11-07] MEDS: Lisinopril 20 MG TAB PO SCH (11:50)
[2020-11-07] MEDS: Clotrimazole 1% Cream 15 GM TUBE TOP SCH (21:47)
[2020-11-08] MEDS: HYDROcodone/Acetaminophen 10/325 mg Tablet PO PRN ×3 (09:12→23:12)
[2020-11-08] MEDS: Isosorbide Mononitrate 20 MG TAB PO SCH ×2 (09:13→21:16)
[2020-11-08] MEDS: Rifampin 300 MG CAP PO SCH ×2 (09:14→21:16)
[2020-11-08] MEDS: Multivit, Therapeutic 1 TAB PO SCH (09:14)
[2020-11-08] MEDS: Gabapentin 100 MG CAP PO SCH ×2 (09:14→21:16)
[2020-11-08] MEDS: Furosemide 20 MG TAB PO SCH (09:14)
[2020-11-08] MEDS: Calcium Carbonate 600 MG + Vit D TAB PO SCH (09:14)
[2020-11-08] MEDS: Aspirin Chewable 81 MG TAB PO SCH (09:14)
[2020-11-08] MEDS: Carvedilol 3.125 MG TAB PO SCH ×2 (09:15→17:20)
[2020-11-08] MEDS: metFORMIN 500 MG TAB PO SCH ×2 (09:15→17:20)
[2020-11-08] MEDS: Clotrimazole 1% Cream 15 GM TUBE TOP SCH ×2 (09:15→21:20)
[2020-11-08] MEDS: Vancomycin HCl 750 MG in Sodium Chloride 0.9% 250 ML 250 ML IVPB SCH ×2 (09:17→21:18)
[2020-11-08] MEDS: Vancomycin HCl 500 MG in Sodium Chloride 0.9% 100 ML IVPB SCH ×2 (09:19→21:19)
[2020-11-08] MEDS: Atorvastatin Calcium 10 MG TAB PO SCH (12:26)
[2020-11-08] MEDS: Lisinopril 20 MG TAB PO SCH (12:26)
[2020-11-09] MEDS: HYDROcodone/Acetaminophen 10/325 mg Tablet PO PRN ×2 (04:36→17:30)
[2020-11-09] MEDS: Vancomycin HCl 750 MG in Sodium Chloride 0.9% 250 ML 250 ML IVPB SCH ×2 (08:19→20:27)
[2020-11-09] MEDS: Aspirin Chewable 81 MG TAB PO SCH (08:21)
[2020-11-09] MEDS: metFORMIN 500 MG TAB PO SCH ×2 (08:21→17:26)
[2020-11-09] MEDS: Calcium Carbonate 600 MG + Vit D TAB PO SCH (08:21)
[2020-11-09] MEDS: Carvedilol 3.125 MG TAB PO SCH ×2 (08:21→17:26)
[2020-11-09] MEDS: Gabapentin 100 MG CAP PO SCH ×2 (08:22→20:27)
[2020-11-09] MEDS: Furosemide 20 MG TAB PO SCH (08:22)
[2020-11-09] MEDS: Isosorbide Mononitrate 20 MG TAB PO SCH ×2 (08:23→20:28)
[2020-11-09] MEDS: Multivit, Therapeutic 1 TAB PO SCH (08:23)
[2020-11-09] MEDS: Clotrimazole 1% Cream 15 GM TUBE TOP SCH ×2 (08:25→20:28)
[2020-11-09] MEDS: Ondansetron ODT 4 MG TAB PO PRN (08:34)
[2020-11-09 09:09] LABS: #Basophils 0.1 thou/uL (0.0-0.2); #Eosinphils 0.4 thou/uL (0.0-0.7); %Eosinophils 4.2 % (0.0-10.0); %Lymphocytes 21.1 % (21.0-51.0); %Monocytes 10.9 % (0.0-10.0); %Neutrophils 62.8 % (42.0-75.0); Hemoglobin 11.3 g/dL (12.0-16.0); Mean Corpuscular HGB CONC 30.6 g/dL (32.0-36.0); Mean Corpuscular Hemoglobin 29.2 pg (27.0-31.0); Mean Corpuscular Volume 95.3 fL (78.0-98.0); Mean Platelet Volume 6.7 fL (7.4-10.4); Platelet Count 422 thou/uL (130-400); RBC Distribution Width 13.4 % (11.5-14.5); Red Blood Cell (RBC) Count 3.87 mill/uL (4.20-5.40); White Blood Cell (WBC) Count 9.5 thou/uL (4.8-10.8)
[2020-11-09 09:23] LABS: ALT (SGPT) 14 U/L (8-55); AST (SGOT) 16 U/L (5-34); Albumin 4.1 g/dL (3.4-4.8); Alkaline Phosphatase 86 U/L (40-110); Anion Gap 16 mmol/L (10-20); BUN (Urea Nitrogen) 8 mg/dL (9.8-20.1); Bilirubin, Total 0.2 mg/dL (0.2-1.2); Calc. Creatinine Clearance 112 mL/min (70-130); Calcium 9.6 mg/dL (7.8-10.44); Carbon Dioxide 25 mmol/L (23-31); Chloride 105 mmol/L (98-107); Globulin 3.5 g/dL (2.4-3.5); Glucose 115 mg/dL (80-115); Potassium 3.3 mmol/L (3.5-5.1); Protein, Total 7.6 g/dL (5.8-8.1); Sodium 143 mmol/L (136-145)
[2020-11-09] MEDS: Vancomycin HCl 500 MG in Sodium Chloride 0.9% 100 ML IVPB SCH ×2 (09:54→21:27)
[2020-11-09] MEDS: Rifampin 300 MG CAP PO SCH ×2 (09:55→21:27)
[2020-11-09] MEDS: Ibuprofen 200 MG TAB PO PRN (12:08)
[2020-11-09] MEDS: Lisinopril 20 MG TAB PO SCH (12:08)
[2020-11-09] MEDS: Atorvastatin Calcium 10 MG TAB PO SCH (12:08)
[2020-11-10] MEDS: HYDROcodone/Acetaminophen 10/325 mg Tablet PO PRN ×4 (00:28→19:10)
[2020-11-10] MEDS: Carvedilol 3.125 MG TAB PO SCH ×2 (08:24→17:34)
[2020-11-10] MEDS: metFORMIN 500 MG TAB PO SCH ×2 (08:25→17:34)
[2020-11-10] MEDS: Potassium Chloride 10 MEQ TAB PO SCH ×2 (08:25→17:34)
[2020-11-10] MEDS: Aspirin Chewable 81 MG TAB PO SCH (08:25)
[2020-11-10] MEDS: Calcium Carbonate 600 MG + Vit D TAB PO SCH (08:25)
[2020-11-10] MEDS: Isosorbide Mononitrate 20 MG TAB PO SCH ×2 (08:26→21:06)
[2020-11-10] MEDS: Multivit, Therapeutic 1 TAB PO SCH (08:26)
[2020-11-10] MEDS: Gabapentin 100 MG CAP PO SCH ×2 (08:26→21:06)
[2020-11-10] MEDS: Furosemide 20 MG TAB PO SCH (08:26)
[2020-11-10] MEDS: Vancomycin HCl 750 MG in Sodium Chloride 0.9% 250 ML 250 ML IVPB SCH (08:27)
[2020-11-10] MEDS: Clotrimazole 1% Cream 15 GM TUBE TOP SCH ×2 (08:29→21:08)
[2020-11-10] MEDS: Rifampin 300 MG CAP PO SCH (09:01)
[2020-11-10] MEDS: Vancomycin HCl 500 MG in Sodium Chloride 0.9% 100 ML IVPB SCH (10:45)
[2020-11-10] MEDS: Atorvastatin Calcium 10 MG TAB PO SCH (11:58)
[2020-11-10] MEDS: Lisinopril 20 MG TAB PO SCH (11:58)
[2020-11-10] MEDS: Ibuprofen 200 MG TAB PO PRN (12:07)
[2020-11-11 08:22] LABS: Hemoglobin 10.8 g/dL (12.0-16.0); Mean Corpuscular HGB CONC 30.2 g/dL (32.0-36.0); Mean Corpuscular Hemoglobin 28.8 pg (27.0-31.0); Mean Corpuscular Volume 95.6 fL (78.0-98.0); Mean Platelet Volume 6.5 fL (7.4-10.4); Platelet Count 430 thou/uL (130-400); RBC Distribution Width 13.9 % (11.5-14.5); Red Blood Cell (RBC) Count 3.74 mill/uL (4.20-5.40); White Blood Cell (WBC) Count 8.2 thou/uL (4.8-10.8)
[2020-11-11 08:28] LABS: Vancomycin, Trough 9.8 ug/mL
[2020-11-11 08:30] LABS: Anion Gap 13 mmol/L (10-20); BUN (Urea Nitrogen) 9 mg/dL (9.8-20.1); Calc. Creatinine Clearance 111 mL/min (70-130); Calcium 9.8 mg/dL (7.8-10.44); Carbon Dioxide 31 mmol/L (23-31); Chloride 104 mmol/L (98-107); Glucose 111 mg/dL (80-115); Potassium 4.1 mmol/L (3.5-5.1); Sodium 144 mmol/L (136-145)
[2020-11-11 08:47] LABS: Anisocytosis SLIGHT = 6-15 cells (100X) (0-5/hpf); Band 2 % (5-11); Eosinophils 2 % (0-10); Lymphocytes 17 % (21-51); MDiff Complete? YES; Monocytes 13 % (0-10); Neutrophil 66 % (42-75)
[2020-11-11 08:48] LABS: Platelet Morphology Comment Appears Increased
[2020-11-11] MEDS: Gabapentin 100 MG CAP PO SCH ×2 (08:59→20:29)
[2020-11-11] MEDS: Potassium Chloride 10 MEQ TAB PO SCH ×2 (08:59→16:31)
[2020-11-11] MEDS: Multivit, Therapeutic 1 TAB PO SCH (08:59)
[2020-11-11] MEDS: Aspirin Chewable 81 MG TAB PO SCH (08:59)
[2020-11-11] MEDS: Calcium Carbonate 600 MG + Vit D TAB PO SCH (08:59)
[2020-11-11] MEDS: Carvedilol 3.125 MG TAB PO SCH ×2 (08:59→16:31)
[2020-11-11] MEDS: Isosorbide Mononitrate 20 MG TAB PO SCH ×2 (08:59→20:29)
[2020-11-11] MEDS: Clotrimazole 1% Cream 15 GM TUBE TOP SCH ×2 (09:00→20:30)
[2020-11-11] MEDS: metFORMIN 500 MG TAB PO SCH ×2 (09:00→16:31)
[2020-11-11] MEDS: HYDROcodone/Acetaminophen 10/325 mg Tablet PO PRN ×2 (09:03→16:30)
[2020-11-11] MEDS: Furosemide 20 MG TAB PO SCH (09:03)
[2020-11-11] MEDS: Lisinopril 20 MG TAB PO SCH (11:55)
[2020-11-11] MEDS: Atorvastatin Calcium 10 MG TAB PO SCH (11:55)
[2020-11-11 16:52] LABS: Hemoglobin A1c 5.7 % (4.0-6.0)
[2020-11-12] MEDS: HYDROcodone/Acetaminophen 10/325 mg Tablet PO PRN ×4 (00:53→19:59)
[2020-11-12 02:10] LABS: SARS-CoV-2 PCR by NAA Not Detected (NotDetected)
[2020-11-12] MEDS: Potassium Chloride 10 MEQ TAB PO SCH ×2 (07:43→16:29)
[2020-11-12] MEDS: metFORMIN 500 MG TAB PO SCH ×2 (07:43→16:29)
[2020-11-12] MEDS: Carvedilol 3.125 MG TAB PO SCH ×2 (07:43→16:29)
[2020-11-12] MEDS: Multivit, Therapeutic 1 TAB PO SCH (08:13)
[2020-11-12] MEDS: Aspirin Chewable 81 MG TAB PO SCH (08:13)
[2020-11-12] MEDS: Isosorbide Mononitrate 20 MG TAB PO SCH ×2 (08:13→20:01)
[2020-11-12] MEDS: Furosemide 20 MG TAB PO SCH (08:14)
[2020-11-12] MEDS: Gabapentin 100 MG CAP PO SCH ×2 (08:14→20:01)
[2020-11-12] MEDS: Calcium Carbonate 600 MG + Vit D TAB PO SCH (08:14)
[2020-11-12] MEDS: Clotrimazole 1% Cream 15 GM TUBE TOP SCH ×2 (08:14→20:03)
[2020-11-12] MEDS: Lisinopril 20 MG TAB PO SCH (11:28)
[2020-11-12] MEDS: Atorvastatin Calcium 10 MG TAB PO SCH (11:28)
[2020-11-12 14:21] LABS: SARS-CoV-2 IgG Ab Non-Reactive (NonReactive)
[2020-11-12 15:53] LABS: SARS-CoV-2 IgG Index 0.09 S/CO (< 1.40)
[2020-11-12] MEDS: Ibuprofen 200 MG TAB PO PRN (21:20)
[2020-11-12] MEDS: Sterile Water 10 ML VIAL IVP PRN (22:48)
[2020-11-12] MEDS: Activase 2 MG VIAL CATH PRN (22:48)
[2020-11-13] MEDS: Activase 2 MG VIAL CATH PRN (01:39)
[2020-11-13] MEDS: Sterile Water 10 ML VIAL IVP PRN (01:39)
[2020-11-13] MEDS: HYDROcodone/Acetaminophen 10/325 mg Tablet PO PRN ×3 (01:46→20:03)
[2020-11-13] MEDS: Calcium Carbonate 600 MG + Vit D TAB PO SCH (08:19)
[2020-11-13] MEDS: Potassium Chloride 10 MEQ TAB PO SCH ×2 (08:19→17:14)
[2020-11-13] MEDS: Isosorbide Mononitrate 20 MG TAB PO SCH ×2 (08:19→20:05)
[2020-11-13] MEDS: Clotrimazole 1% Cream 15 GM TUBE TOP SCH ×2 (08:20→20:05)
[2020-11-13] MEDS: metFORMIN 500 MG TAB PO SCH ×2 (08:20→17:14)
[2020-11-13] MEDS: Carvedilol 3.125 MG TAB PO SCH ×2 (08:20→17:14)
[2020-11-13] MEDS: Furosemide 20 MG TAB PO SCH (08:20)
[2020-11-13] MEDS: Gabapentin 100 MG CAP PO SCH ×2 (08:20→20:05)
[2020-11-13] MEDS: Aspirin Chewable 81 MG TAB PO SCH (08:20)
[2020-11-13] MEDS: Multivit, Therapeutic 1 TAB PO SCH (08:21)
[2020-11-13] MEDS: Atorvastatin Calcium 10 MG TAB PO SCH (12:23)
[2020-11-13] MEDS: Lisinopril 20 MG TAB PO SCH (12:23)
[2020-11-13] MEDS: Ibuprofen 200 MG TAB PO PRN (14:14)
[2020-11-14] MEDS: HYDROcodone/Acetaminophen 10/325 mg Tablet PO PRN ×2 (02:09→07:50)
[2020-11-14] MEDS: Carvedilol 3.125 MG TAB PO SCH ×2 (07:44→17:52)
[2020-11-14] MEDS: Aspirin Chewable 81 MG TAB PO SCH (07:45)
[2020-11-14] MEDS: Potassium Chloride 10 MEQ TAB PO SCH ×2 (07:45→17:53)
[2020-11-14] MEDS: Gabapentin 100 MG CAP PO SCH ×2 (07:45→21:18)
[2020-11-14] MEDS: metFORMIN 500 MG TAB PO SCH ×2 (07:45→17:52)
[2020-11-14] MEDS: Furosemide 20 MG TAB PO SCH (07:45)
[2020-11-14] MEDS: Isosorbide Mononitrate 20 MG TAB PO SCH ×2 (07:45→21:19)
[2020-11-14] MEDS: Multivit, Therapeutic 1 TAB PO SCH (07:46)
[2020-11-14] MEDS: Calcium Carbonate 600 MG + Vit D TAB PO SCH (07:46)
[2020-11-14] MEDS: Clotrimazole 1% Cream 15 GM TUBE TOP SCH ×2 (07:56→21:19)
[2020-11-14] MEDS: Lisinopril 20 MG TAB PO SCH (12:15)
[2020-11-14] MEDS: Atorvastatin Calcium 10 MG TAB PO SCH (12:15)
[2020-11-15] MEDS: HYDROcodone/Acetaminophen 10/325 mg Tablet PO PRN (01:50)
[2020-11-15] MEDS: Ibuprofen 200 MG TAB PO PRN ×3 (03:56→21:30)
[2020-11-15] MEDS: metFORMIN 500 MG TAB PO SCH ×2 (08:16→16:54)
[2020-11-15] MEDS: Carvedilol 3.125 MG TAB PO SCH ×2 (08:16→16:54)
[2020-11-15] MEDS: Potassium Chloride 10 MEQ TAB PO SCH ×2 (08:17→16:54)
[2020-11-15] MEDS: Calcium Carbonate 600 MG + Vit D TAB PO SCH (08:17)
[2020-11-15] MEDS: Aspirin Chewable 81 MG TAB PO SCH (08:17)
[2020-11-15] MEDS: Clotrimazole 1% Cream 15 GM TUBE TOP SCH ×2 (08:17→20:13)
[2020-11-15] MEDS: Furosemide 20 MG TAB PO SCH (08:18)
[2020-11-15] MEDS: Gabapentin 100 MG CAP PO SCH (08:18)
[2020-11-15] MEDS: Multivit, Therapeutic 1 TAB PO SCH (08:19)
[2020-11-15] MEDS: Isosorbide Mononitrate 20 MG TAB PO SCH ×2 (08:19→20:11)
[2020-11-15] MEDS: Atorvastatin Calcium 10 MG TAB PO SCH (12:07)
[2020-11-15] MEDS: Lisinopril 20 MG TAB PO SCH (12:07)
[2020-11-15] MEDS ORDERED: Gabapentin 100 MG CAP PO SCH (21:00)
[2020-11-16] MEDS: HYDROcodone/Acetaminophen 10/325 mg Tablet PO PRN (01:21)
[2020-11-16] MEDS: Carvedilol 3.125 MG TAB PO SCH ×2 (04:58→18:24)
[2020-11-16] MEDS: Isosorbide Mononitrate 20 MG TAB PO SCH ×2 (04:59→19:54)
[2020-11-16] MEDS: Clotrimazole 1% Cream 15 GM TUBE TOP SCH ×2 (11:48→21:17)
[2020-11-16] MEDS: Atorvastatin Calcium 10 MG TAB PO SCH (12:49)
[2020-11-16] MEDS: traMADol HCl 50 MG TAB PO PRN ×2 (19:52→23:55)
[2020-11-16] MEDS: Acetaminophen 325 MG TAB PO PRN (21:22)
[2020-11-17] MEDS: traMADol HCl 50 MG TAB PO PRN ×2 (03:58→07:20)
[2020-11-17] MEDS: HYDROcodone/Acetaminophen 10/325 mg Tablet PO PRN ×2 (07:53→15:36)
[2020-11-17] MEDS: Carvedilol 3.125 MG TAB PO SCH ×2 (09:28→17:23)
[2020-11-17] MEDS: Isosorbide Mononitrate 20 MG TAB PO SCH ×2 (09:28→20:41)
[2020-11-17] MEDS: Aspirin 81 mg Enteric Coated Tablet PO SCH (09:28)
[2020-11-17] MEDS: Clotrimazole 1% Cream 15 GM TUBE TOP SCH ×2 (09:29→20:41)
[2020-11-17] MEDS: Atorvastatin Calcium 10 MG TAB PO SCH (11:57)
[2020-11-17] MEDS: Ibuprofen 600 MG TAB PO PRN ×2 (11:57→20:39)
[2020-11-17] MEDS ORDERED: HYDROcodone/Acetaminophen 10/325 mg Tablet PO SCH (19:45)
[2020-11-17] MEDS ORDERED: Morphine 4 MG/ML VIAL SLOW IVP SCH (21:45)
[2020-11-18] MEDS: HYDROcodone/Acetaminophen 10/325 mg Tablet PO PRN ×4 (00:42→22:09)
[2020-11-18] MEDS: Ibuprofen 600 MG TAB PO PRN ×2 (04:03→20:40)
[2020-11-18] MEDS: Carvedilol 3.125 MG TAB PO SCH ×2 (09:26→17:07)
[2020-11-18] MEDS: Isosorbide Mononitrate 20 MG TAB PO SCH ×2 (09:26→20:40)
[2020-11-18] MEDS: Aspirin 81 mg Enteric Coated Tablet PO SCH (09:26)
[2020-11-18] MEDS: Clotrimazole 1% Cream 15 GM TUBE TOP SCH ×2 (09:29→20:54)
[2020-11-18] MEDS: Atorvastatin Calcium 10 MG TAB PO SCH (12:16)
[2020-11-18 12:40] VITALS: BMI 32.4
[2020-11-19] MEDS: HYDROcodone/Acetaminophen 10/325 mg Tablet PO PRN ×4 (02:44→20:15)
[2020-11-19] MEDS: Aspirin 81 mg Enteric Coated Tablet PO SCH (08:22)
[2020-11-19] MEDS: Carvedilol 3.125 MG TAB PO SCH ×2 (08:22→17:19)
[2020-11-19] MEDS: Isosorbide Mononitrate 20 MG TAB PO SCH ×2 (08:22→20:13)
[2020-11-19] MEDS: Clotrimazole 1% Cream 15 GM TUBE TOP SCH ×2 (08:25→20:13)
[2020-11-19] MEDS: Furosemide 20 MG TAB PO SCH (11:40)
[2020-11-19] MEDS: Ibuprofen 600 MG TAB PO PRN (11:40)
[2020-11-19] MEDS: Lisinopril 10 MG TAB PO SCH (11:40)
[2020-11-19] MEDS: Atorvastatin Calcium 10 MG TAB PO SCH (11:41)
[2020-11-19] MEDS: Calcium Carbonate 600 MG + Vit D TAB PO SCH (20:13)
[2020-11-20] MEDS: HYDROcodone/Acetaminophen 10/325 mg Tablet PO PRN ×4 (02:10→21:15)
[2020-11-20] MEDS: Ibuprofen 600 MG TAB PO PRN ×2 (04:31→17:46)
[2020-11-20] MEDS: Carvedilol 3.125 MG TAB PO SCH ×2 (08:28→17:39)
[2020-11-20] MEDS: Calcium Carbonate 600 MG + Vit D TAB PO SCH ×2 (08:28→21:17)
[2020-11-20] MEDS: Isosorbide Mononitrate 20 MG TAB PO SCH ×2 (08:28→21:16)
[2020-11-20] MEDS: Aspirin 81 mg Enteric Coated Tablet PO SCH (08:28)
[2020-11-20] MEDS: Atorvastatin Calcium 10 MG TAB PO SCH (12:08)
[2020-11-20] MEDS: Lisinopril 10 MG TAB PO SCH (12:08)
[2020-11-20] MEDS: Furosemide 20 MG TAB PO SCH (12:08)
[2020-11-20] MEDS: Clotrimazole 1% Cream 15 GM TUBE TOP SCH ×2 (17:09→21:16)
[2020-11-21] MEDS: Ibuprofen 600 MG TAB PO PRN (00:52)
[2020-11-21] MEDS: HYDROcodone/Acetaminophen 10/325 mg Tablet PO PRN ×4 (06:17→20:53)
[2020-11-21] MEDS: Aspirin 81 mg Enteric Coated Tablet PO SCH (08:11)
[2020-11-21] MEDS: Carvedilol 3.125 MG TAB PO SCH ×2 (08:11→16:38)
[2020-11-21] MEDS: Isosorbide Mononitrate 20 MG TAB PO SCH ×2 (08:11→20:52)
[2020-11-21] MEDS: Calcium Carbonate 600 MG + Vit D TAB PO SCH ×2 (08:11→20:52)
[2020-11-21] MEDS: Clotrimazole 1% Cream 15 GM TUBE TOP SCH ×2 (09:27→20:52)
[2020-11-21] MEDS: Lisinopril 10 MG TAB PO SCH (11:56)
[2020-11-21] MEDS: Furosemide 20 MG TAB PO SCH (11:57)
[2020-11-21] MEDS: Atorvastatin Calcium 10 MG TAB PO SCH (11:57)
[2020-11-21] MEDS ORDERED: Polyethylene Glycol 3350 17 GM Packet PO SCH (20:30)
[2020-11-22] MEDS: HYDROcodone/Acetaminophen 10/325 mg Tablet PO PRN ×4 (01:47→20:53)
[2020-11-22 05:46] LABS: #Basophils 0.1 thou/uL (0.0-0.2); #Eosinphils 0.5 thou/uL (0.0-0.7); #Lymphocytes 3.1 thou/uL (1.20-3.40); #Neutrophils 3.7 thou/uL (1.40-6.50); %Basophils 1.2 % (0.0-1.0); %Eosinophils 5.9 % (0.0-10.0); %Lymphocytes 36.8 % (21.0-51.0); %Monocytes 11.4 % (0.0-10.0); %Neutrophils 44.7 % (42.0-75.0); Hemoglobin 9.4 g/dL (12.0-16.0); Mean Corpuscular HGB CONC 31.8 g/dL (32.0-36.0); Mean Corpuscular Hemoglobin 30.1 pg (27.0-31.0); Mean Corpuscular Volume 94.5 fL (78.0-98.0); Mean Platelet Volume 6.4 fL (7.4-10.4); Platelet Count 329 thou/uL (130-400); RBC Distribution Width 13.6 % (11.5-14.5); Red Blood Cell (RBC) Count 3.14 mill/uL (4.20-5.40); White Blood Cell (WBC) Count 8.3 thou/uL (4.8-10.8)
[2020-11-22 06:00] LABS: ALT (SGPT) 12 U/L (8-55); AST (SGOT) 18 U/L (5-34); Albumin 3.8 g/dL (3.4-4.8); Alkaline Phosphatase 85 U/L (40-110); Anion Gap 15 mmol/L (10-20); BUN (Urea Nitrogen) 19 mg/dL (9.8-20.1); Bilirubin, Total Less than 0.2 mg/dL (0.2-1.2); CRP (Inflammatory) 5.39 mg/dL (= or < 0.5); Calc. Creatinine Clearance 86 mL/min (70-130); Calcium 9.4 mg/dL (7.8-10.44); Carbon Dioxide 28 mmol/L (23-31); Chloride 102 mmol/L (98-107); Globulin 3.3 g/dL (2.4-3.5); Glucose 112 mg/dL (80-115); Potassium 4.4 mmol/L (3.5-5.1); Protein, Total 7.1 g/dL (5.8-8.1); Sodium 141 mmol/L (136-145)
[2020-11-22] MEDS: Polyethylene Glycol 3350 17 GM Packet PO SCH (08:20)
[2020-11-22] MEDS: Calcium Carbonate 600 MG + Vit D TAB PO SCH ×2 (08:21→20:29)
[2020-11-22] MEDS: Aspirin 81 mg Enteric Coated Tablet PO SCH (08:21)
[2020-11-22] MEDS: Isosorbide Mononitrate 20 MG TAB PO SCH ×2 (08:21→20:29)
[2020-11-22] MEDS: Carvedilol 3.125 MG TAB PO SCH ×2 (08:21→17:07)
[2020-11-22] MEDS: Clotrimazole 1% Cream 15 GM TUBE TOP SCH ×2 (08:23→20:30)
[2020-11-22] MEDS: Ibuprofen 600 MG TAB PO PRN (12:02)
[2020-11-22] MEDS: Lisinopril 10 MG TAB PO SCH (12:04)
[2020-11-22] MEDS: Furosemide 20 MG TAB PO SCH (12:04)
[2020-11-22] MEDS: Atorvastatin Calcium 10 MG TAB PO SCH (12:04)
[2020-11-23] MEDS: HYDROcodone/Acetaminophen 10/325 mg Tablet PO PRN ×4 (02:25→20:50)
[2020-11-23] MEDS: Ibuprofen 600 MG TAB PO PRN ×2 (05:24→11:44)
[2020-11-23] MEDS: Polyethylene Glycol 3350 17 GM Packet PO SCH (08:22)
[2020-11-23] MEDS: Aspirin 81 mg Enteric Coated Tablet PO SCH (08:22)
[2020-11-23] MEDS: Calcium Carbonate 600 MG + Vit D TAB PO SCH ×2 (08:23→20:49)
[2020-11-23] MEDS: Clotrimazole 1% Cream 15 GM TUBE TOP SCH ×2 (08:23→20:49)
[2020-11-23] MEDS: Isosorbide Mononitrate 20 MG TAB PO SCH ×2 (08:23→20:49)
[2020-11-23] MEDS: Carvedilol 3.125 MG TAB PO SCH ×2 (08:23→17:06)
[2020-11-23] MEDS: Lisinopril 10 MG TAB PO SCH (11:43)
[2020-11-23] MEDS: Furosemide 20 MG TAB PO SCH (11:43)
[2020-11-23] MEDS: Atorvastatin Calcium 10 MG TAB PO SCH (11:43)
[2020-11-24] MEDS: HYDROcodone/Acetaminophen 10/325 mg Tablet PO PRN ×4 (03:42→21:18)
[2020-11-24] MEDS: Carvedilol 3.125 MG TAB PO SCH ×2 (09:30→17:14)
[2020-11-24] MEDS: Isosorbide Mononitrate 20 MG TAB PO SCH ×2 (09:31→20:04)
[2020-11-24] MEDS: Aspirin 81 mg Enteric Coated Tablet PO SCH (09:31)
[2020-11-24] MEDS: Calcium Carbonate 600 MG + Vit D TAB PO SCH ×2 (09:31→20:04)
[2020-11-24] MEDS: Clotrimazole 1% Cream 15 GM TUBE TOP SCH ×2 (10:39→20:05)
[2020-11-24] MEDS: Polyethylene Glycol 3350 17 GM Packet PO SCH (10:39)
[2020-11-24] MEDS: Furosemide 20 MG TAB PO SCH (12:21)
[2020-11-24] MEDS: Atorvastatin Calcium 10 MG TAB PO SCH (12:21)
[2020-11-24] MEDS: Lisinopril 10 MG TAB PO SCH (12:21)
[2020-11-24] MEDS: Ibuprofen 600 MG TAB PO PRN (20:19)
[2020-11-25] MEDS: HYDROcodone/Acetaminophen 10/325 mg Tablet PO PRN ×2 (08:36→18:46)
[2020-11-25] MEDS: Aspirin 81 mg Enteric Coated Tablet PO SCH (08:37)
[2020-11-25] MEDS: Carvedilol 3.125 MG TAB PO SCH ×2 (08:37→18:46)
[2020-11-25] MEDS: Calcium Carbonate 600 MG + Vit D TAB PO SCH ×2 (08:37→20:01)
[2020-11-25] MEDS: Isosorbide Mononitrate 20 MG TAB PO SCH ×2 (08:37→20:01)
[2020-11-25] MEDS: Clotrimazole 1% Cream 15 GM TUBE TOP SCH ×2 (08:38→20:01)
[2020-11-25] MEDS: Polyethylene Glycol 3350 17 GM Packet PO SCH (08:38)
[2020-11-25] MEDS: Lisinopril 10 MG TAB PO SCH (11:34)
[2020-11-25] MEDS: Atorvastatin Calcium 10 MG TAB PO SCH (11:34)
[2020-11-25] MEDS: Furosemide 20 MG TAB PO SCH (18:12)
[2020-11-26] MEDS: HYDROcodone/Acetaminophen 10/325 mg Tablet PO PRN ×3 (01:46→15:47)
[2020-11-26] MEDS: Aspirin 81 mg Enteric Coated Tablet PO SCH (08:14)
[2020-11-26] MEDS: Isosorbide Mononitrate 20 MG TAB PO SCH ×2 (08:14→20:16)
[2020-11-26] MEDS: Calcium Carbonate 600 MG + Vit D TAB PO SCH ×2 (08:14→20:16)
[2020-11-26] MEDS: Clotrimazole 1% Cream 15 GM TUBE TOP SCH ×2 (08:14→20:16)
[2020-11-26] MEDS: Carvedilol 3.125 MG TAB PO SCH ×2 (08:14→17:01)
[2020-11-26] MEDS: Polyethylene Glycol 3350 17 GM Packet PO SCH (08:15)
[2020-11-26] MEDS: Atorvastatin Calcium 10 MG TAB PO SCH (11:51)
[2020-11-26] MEDS: Lisinopril 10 MG TAB PO SCH (11:51)
[2020-11-26] MEDS: Furosemide 20 MG TAB PO SCH (11:51)
[2020-11-27] MEDS: HYDROcodone/Acetaminophen 10/325 mg Tablet PO PRN ×5 (00:01→23:56)
[2020-11-27] MEDS: Ibuprofen 600 MG TAB PO PRN ×2 (01:51→16:59)
[2020-11-27] MEDS: Calcium Carbonate 600 MG + Vit D TAB PO SCH ×2 (09:01→20:02)
[2020-11-27] MEDS: Carvedilol 3.125 MG TAB PO SCH ×2 (09:01→16:59)
[2020-11-27] MEDS: Polyethylene Glycol 3350 17 GM Packet PO SCH (09:01)
[2020-11-27] MEDS: Aspirin 81 mg Enteric Coated Tablet PO SCH (09:01)
[2020-11-27] MEDS: Isosorbide Mononitrate 20 MG TAB PO SCH ×2 (09:01→20:02)
[2020-11-27] MEDS: Clotrimazole 1% Cream 15 GM TUBE TOP SCH ×2 (09:01→20:02)
[2020-11-27] MEDS: Furosemide 20 MG TAB PO SCH (11:32)
[2020-11-27] MEDS: Lisinopril 10 MG TAB PO SCH (11:32)
[2020-11-27] MEDS: Atorvastatin Calcium 10 MG TAB PO SCH (11:33)
[2020-11-28] MEDS: Ibuprofen 600 MG TAB PO PRN ×3 (01:07→23:39)
[2020-11-28] MEDS: HYDROcodone/Acetaminophen 10/325 mg Tablet PO PRN ×4 (04:30→23:35)
[2020-11-28] MEDS: Isosorbide Mononitrate 20 MG TAB PO SCH ×2 (09:06→21:22)
[2020-11-28] MEDS: Aspirin 81 mg Enteric Coated Tablet PO SCH (09:06)
[2020-11-28] MEDS: Carvedilol 3.125 MG TAB PO SCH ×2 (09:06→16:58)
[2020-11-28] MEDS: Calcium Carbonate 600 MG + Vit D TAB PO SCH ×2 (09:06→21:22)
[2020-11-28] MEDS: Polyethylene Glycol 3350 17 GM Packet PO SCH (09:07)
[2020-11-28] MEDS: Clotrimazole 1% Cream 15 GM TUBE TOP SCH ×2 (09:08→21:23)
[2020-11-28] MEDS: Furosemide 20 MG TAB PO SCH (12:12)
[2020-11-28] MEDS: Atorvastatin Calcium 10 MG TAB PO SCH (12:12)
[2020-11-28] MEDS: Lisinopril 10 MG TAB PO SCH (12:12)
[2020-11-29] MEDS: HYDROcodone/Acetaminophen 10/325 mg Tablet PO PRN ×3 (03:14→23:34)
[2020-11-29 05:37] LABS: #Basophils 0.1 thou/uL (0.0-0.2); #Eosinphils 0.7 thou/uL (0.0-0.7); #Lymphocytes 3.2 thou/uL (1.20-3.40); #Monocytes 1.2 thou/uL (0.11-0.59); #Neutrophils 3.8 thou/uL (1.40-6.50); %Basophils 1.2 % (0.0-1.0); %Eosinophils 7.4 % (0.0-10.0); %Lymphocytes 35.4 % (21.0-51.0); %Monocytes 13.6 % (0.0-10.0); %Neutrophils 42.4 % (42.0-75.0); Hemoglobin 9.8 g/dL (12.0-16.0); Mean Corpuscular Hemoglobin 29.9 pg (27.0-31.0); Mean Corpuscular Volume 93.6 fL (78.0-98.0); Mean Platelet Volume 7.3 fL (7.4-10.4); Platelet Count 302 thou/uL (130-400); RBC Distribution Width 13.9 % (11.5-14.5); Red Blood Cell (RBC) Count 3.29 mill/uL (4.20-5.40); White Blood Cell (WBC) Count 8.9 thou/uL (4.8-10.8)
[2020-11-29] MEDS: Ibuprofen 600 MG TAB PO PRN ×3 (05:39→19:56)
[2020-11-29 05:50] LABS: ALT (SGPT) 8 U/L (8-55); AST (SGOT) 14 U/L (5-34); Albumin 3.8 g/dL (3.4-4.8); Alkaline Phosphatase 83 U/L (40-110); Anion Gap 12 mmol/L (10-20); BUN (Urea Nitrogen) 26 mg/dL (9.8-20.1); Bilirubin, Total 0.2 mg/dL (0.2-1.2); CRP (Inflammatory) 1.26 mg/dL (= or < 0.5); Calc. Creatinine Clearance 86 mL/min (70-130); Calcium 9.1 mg/dL (7.8-10.44); Carbon Dioxide 30 mmol/L (23-31); Chloride 103 mmol/L (98-107); Glucose 110 mg/dL (80-115); Potassium 4.4 mmol/L (3.5-5.1); Protein, Total 6.8 g/dL (5.8-8.1); Sodium 141 mmol/L (136-145)
[2020-11-29] MEDS: Polyethylene Glycol 3350 17 GM Packet PO SCH (08:28)
[2020-11-29] MEDS: Calcium Carbonate 600 MG + Vit D TAB PO SCH ×2 (08:28→20:10)
[2020-11-29] MEDS: Clotrimazole 1% Cream 15 GM TUBE TOP SCH ×2 (08:28→20:10)
[2020-11-29] MEDS: Carvedilol 3.125 MG TAB PO SCH ×2 (08:28→16:26)
[2020-11-29] MEDS: Aspirin 81 mg Enteric Coated Tablet PO SCH (08:28)
[2020-11-29] MEDS: Isosorbide Mononitrate 20 MG TAB PO SCH ×2 (08:28→20:10)
[2020-11-29] MEDS: Atorvastatin Calcium 10 MG TAB PO SCH (11:52)
[2020-11-29] MEDS: Lisinopril 10 MG TAB PO SCH (11:53)
[2020-11-29] MEDS: Furosemide 20 MG TAB PO SCH (11:53)
[2020-11-29] MEDS: Acetaminophen 325 MG TAB PO PRN (23:46)
[2020-11-30] MEDS: Ibuprofen 600 MG TAB PO PRN ×2 (02:09→20:09)
[2020-11-30] MEDS: HYDROcodone/Acetaminophen 10/325 mg Tablet PO PRN ×3 (08:45→23:45)
[2020-11-30] MEDS: Carvedilol 3.125 MG TAB PO SCH ×2 (08:46→17:08)
[2020-11-30] MEDS: Calcium Carbonate 600 MG + Vit D TAB PO SCH ×2 (08:46→20:10)
[2020-11-30] MEDS: Aspirin 81 mg Enteric Coated Tablet PO SCH (08:46)
[2020-11-30] MEDS: Clotrimazole 1% Cream 15 GM TUBE TOP SCH ×2 (08:46→20:10)
[2020-11-30] MEDS: Isosorbide Mononitrate 20 MG TAB PO SCH ×2 (08:46→20:10)
[2020-11-30] MEDS: Polyethylene Glycol 3350 17 GM Packet PO SCH (08:47)
[2020-11-30] MEDS: Atorvastatin Calcium 10 MG TAB PO SCH (12:05)
[2020-11-30] MEDS: Furosemide 20 MG TAB PO SCH (12:05)
[2020-11-30] MEDS: Lisinopril 10 MG TAB PO SCH (12:05)
[2020-12-01] MEDS: Ibuprofen 600 MG TAB PO PRN (03:06)
[2020-12-01] MEDS: Calcium Carbonate 600 MG + Vit D TAB PO SCH ×2 (08:39→20:15)
[2020-12-01] MEDS: Carvedilol 3.125 MG TAB PO SCH ×2 (08:39→17:12)
[2020-12-01] MEDS: Aspirin 81 mg Enteric Coated Tablet PO SCH (08:39)
[2020-12-01] MEDS: Isosorbide Mononitrate 20 MG TAB PO SCH ×2 (08:39→20:15)
[2020-12-01] MEDS: Polyethylene Glycol 3350 17 GM Packet PO SCH (08:40)
[2020-12-01] MEDS: Clotrimazole 1% Cream 15 GM TUBE TOP SCH ×2 (09:43→20:16)
[2020-12-01] MEDS: Atorvastatin Calcium 10 MG TAB PO SCH (13:10)
[2020-12-01] MEDS: Lisinopril 10 MG TAB PO SCH (13:10)
[2020-12-01] MEDS: Furosemide 20 MG TAB PO SCH (13:11)
[2020-12-01] MEDS: HYDROcodone/Acetaminophen 10/325 mg Tablet PO PRN ×2 (13:14→17:11)
[2020-12-01] MEDS: Acetaminophen 325 MG TAB PO PRN (20:14)
[2020-12-02] MEDS: HYDROcodone/Acetaminophen 10/325 mg Tablet PO PRN ×4 (01:18→22:22)
[2020-12-02] MEDS: Calcium Carbonate 600 MG + Vit D TAB PO SCH ×2 (07:54→20:59)
[2020-12-02] MEDS: Carvedilol 3.125 MG TAB PO SCH ×2 (07:54→17:29)
[2020-12-02] MEDS: Aspirin 81 mg Enteric Coated Tablet PO SCH (07:54)
[2020-12-02] MEDS: Isosorbide Mononitrate 20 MG TAB PO SCH ×2 (07:54→21:00)
[2020-12-02] MEDS: Clotrimazole 1% Cream 15 GM TUBE TOP SCH ×2 (07:59→21:00)
[2020-12-02] MEDS: Polyethylene Glycol 3350 17 GM Packet PO SCH (08:00)
[2020-12-02] MEDS: Lisinopril 10 MG TAB PO SCH (12:19)
[2020-12-02] MEDS: Furosemide 20 MG TAB PO SCH (12:19)
[2020-12-02] MEDS: Atorvastatin Calcium 10 MG TAB PO SCH (12:19)
[2020-12-03] MEDS: HYDROcodone/Acetaminophen 10/325 mg Tablet PO PRN ×5 (03:26→21:35)
[2020-12-03] MEDS: Polyethylene Glycol 3350 17 GM Packet PO SCH (08:32)
[2020-12-03] MEDS: Aspirin 81 mg Enteric Coated Tablet PO SCH (08:32)
[2020-12-03] MEDS: Isosorbide Mononitrate 20 MG TAB PO SCH ×2 (08:33→21:36)
[2020-12-03] MEDS: Calcium Carbonate 600 MG + Vit D TAB PO SCH ×2 (08:33→21:36)
[2020-12-03] MEDS: Carvedilol 3.125 MG TAB PO SCH ×2 (08:33→17:46)
[2020-12-03] MEDS: Clotrimazole 1% Cream 15 GM TUBE TOP SCH ×2 (08:34→21:37)
[2020-12-03] MEDS: Furosemide 20 MG TAB PO SCH (12:14)
[2020-12-03] MEDS: Atorvastatin Calcium 10 MG TAB PO SCH (12:14)
[2020-12-03] MEDS: Lisinopril 10 MG TAB PO SCH (12:14)
[2020-12-04] MEDS: HYDROcodone/Acetaminophen 10/325 mg Tablet PO PRN ×5 (01:36→22:09)
[2020-12-04] MEDS: Calcium Carbonate 600 MG + Vit D TAB PO SCH ×2 (08:49→21:10)
[2020-12-04] MEDS: Aspirin 81 mg Enteric Coated Tablet PO SCH (08:49)
[2020-12-04] MEDS: Polyethylene Glycol 3350 17 GM Packet PO SCH (08:50)
[2020-12-04] MEDS: Clotrimazole 1% Cream 15 GM TUBE TOP SCH ×2 (08:50→21:10)
[2020-12-04] MEDS: Carvedilol 3.125 MG TAB PO SCH ×2 (08:51→18:11)
[2020-12-04] MEDS: Isosorbide Mononitrate 20 MG TAB PO SCH ×2 (08:51→21:10)
[2020-12-04] MEDS: Furosemide 20 MG TAB PO SCH (11:53)
[2020-12-04] MEDS: Lisinopril 10 MG TAB PO SCH (11:53)
[2020-12-04] MEDS: Atorvastatin Calcium 10 MG TAB PO SCH (11:55)
[2020-12-04] MEDS: Ibuprofen 600 MG TAB PO PRN (21:11)
[2020-12-05] MEDS: HYDROcodone/Acetaminophen 10/325 mg Tablet PO PRN ×4 (02:02→21:01)
[2020-12-05] MEDS ORDERED: HYDROcodone/Acetaminophen 10/325 mg Tablet ONE (08:48)
[2020-12-05] MEDS: Calcium Carbonate 600 MG + Vit D TAB PO SCH ×2 (10:02→21:00)
[2020-12-05] MEDS: Aspirin 81 mg Enteric Coated Tablet PO SCH (10:02)
[2020-12-05] MEDS: Polyethylene Glycol 3350 17 GM Packet PO SCH (10:02)
[2020-12-05] MEDS: Isosorbide Mononitrate 20 MG TAB PO SCH ×2 (10:02→21:00)
[2020-12-05] MEDS: Clotrimazole 1% Cream 15 GM TUBE TOP SCH ×2 (10:02→21:00)
[2020-12-05] MEDS: Carvedilol 3.125 MG TAB PO SCH ×2 (10:02→18:03)
[2020-12-05] MEDS: Atorvastatin Calcium 10 MG TAB PO SCH (12:03)
[2020-12-05] MEDS: Lisinopril 10 MG TAB PO SCH (12:04)
[2020-12-05] MEDS: Furosemide 20 MG TAB PO SCH (12:04)
[2020-12-06] MEDS: HYDROcodone/Acetaminophen 10/325 mg Tablet PO PRN ×4 (02:54→23:31)
[2020-12-06 06:01] LABS: #Basophils 0.1 thou/uL (0.0-0.2); #Eosinphils 0.6 thou/uL (0.0-0.7); #Lymphocytes 2.8 thou/uL (1.20-3.40); #Neutrophils 3.5 thou/uL (1.40-6.50); %Basophils 1.2 % (0.0-1.0); %Eosinophils 7.8 % (0.0-10.0); %Lymphocytes 35.1 % (21.0-51.0); %Monocytes 12.5 % (0.0-10.0); %Neutrophils 43.5 % (42.0-75.0); Hemoglobin 9.9 g/dL (12.0-16.0); Mean Corpuscular HGB CONC 30.9 g/dL (32.0-36.0); Mean Corpuscular Volume 93.7 fL (78.0-98.0); Mean Platelet Volume 7.2 fL (7.4-10.4); Platelet Count 304 thou/uL (130-400); RBC Distribution Width 13.7 % (11.5-14.5); Red Blood Cell (RBC) Count 3.41 mill/uL (4.20-5.40); White Blood Cell (WBC) Count 7.9 thou/uL (4.8-10.8)
[2020-12-06 06:14] LABS: ALT (SGPT) 10 U/L (8-55); AST (SGOT) 16 U/L (5-34); Albumin 3.8 g/dL (3.4-4.8); Alkaline Phosphatase 83 U/L (40-110); Anion Gap 13 mmol/L (10-20); BUN (Urea Nitrogen) 21 mg/dL (9.8-20.1); Bilirubin, Total 0.3 mg/dL (0.2-1.2); CRP (Inflammatory) 1.31 mg/dL (= or < 0.5); Calc. Creatinine Clearance 99 mL/min (70-130); Calcium 9.2 mg/dL (7.8-10.44); Carbon Dioxide 30 mmol/L (23-31); Chloride 103 mmol/L (98-107); Globulin 2.9 g/dL (2.4-3.5); Glucose 108 mg/dL (80-115); Potassium 4.4 mmol/L (3.5-5.1); Protein, Total 6.7 g/dL (5.8-8.1); Sodium 142 mmol/L (136-145)
[2020-12-06] MEDS: Calcium Carbonate 600 MG + Vit D TAB PO SCH ×2 (08:44→21:00)
[2020-12-06] MEDS: Aspirin 81 mg Enteric Coated Tablet PO SCH (08:44)
[2020-12-06] MEDS: Carvedilol 3.125 MG TAB PO SCH ×2 (08:44→17:15)
[2020-12-06] MEDS: Isosorbide Mononitrate 20 MG TAB PO SCH ×2 (08:44→21:00)
[2020-12-06] MEDS: Clotrimazole 1% Cream 15 GM TUBE TOP SCH ×2 (08:44→21:01)
[2020-12-06] MEDS: Polyethylene Glycol 3350 17 GM Packet PO SCH (08:45)
[2020-12-06] MEDS: Lisinopril 10 MG TAB PO SCH (12:05)
[2020-12-06] MEDS: Furosemide 20 MG TAB PO SCH (12:05)
[2020-12-06] MEDS: Atorvastatin Calcium 10 MG TAB PO SCH (12:05)
[2020-12-06] MEDS: Ibuprofen 600 MG TAB PO PRN (21:01)
[2020-12-07] MEDS: HYDROcodone/Acetaminophen 10/325 mg Tablet PO PRN ×3 (05:55→21:10)
[2020-12-07] MEDS: Isosorbide Mononitrate 20 MG TAB PO SCH ×2 (08:23→21:09)
[2020-12-07] MEDS: Aspirin 81 mg Enteric Coated Tablet PO SCH (08:23)
[2020-12-07] MEDS: Carvedilol 3.125 MG TAB PO SCH ×2 (08:24→18:16)
[2020-12-07] MEDS: Calcium Carbonate 600 MG + Vit D TAB PO SCH ×2 (08:24→21:09)
[2020-12-07] MEDS: Polyethylene Glycol 3350 17 GM Packet PO SCH (08:24)
[2020-12-07] MEDS: Clotrimazole 1% Cream 15 GM TUBE TOP SCH ×3 (09:00→21:10)
[2020-12-07] MEDS: Atorvastatin Calcium 10 MG TAB PO SCH (12:15)
[2020-12-07] MEDS ORDERED: Atorvastatin Calcium 10 MG TAB ONE (12:45)
[2020-12-07] MEDS ORDERED: Furosemide 20 MG TAB ONE (12:45)
[2020-12-07] MEDS ORDERED: Lisinopril 5 MG TAB ONE (12:46)
[2020-12-07] MEDS: Furosemide 20 MG TAB PO SCH (14:47)
[2020-12-07] MEDS: Lisinopril 10 MG TAB PO SCH (14:47)
[2020-12-08] MEDS: HYDROcodone/Acetaminophen 10/325 mg Tablet PO PRN ×4 (02:13→21:03)
[2020-12-08] MEDS: Calcium Carbonate 600 MG + Vit D TAB PO SCH ×2 (08:38→21:03)
[2020-12-08] MEDS: Aspirin 81 mg Enteric Coated Tablet PO SCH (08:38)
[2020-12-08] MEDS: Isosorbide Mononitrate 20 MG TAB PO SCH ×2 (08:38→21:03)
[2020-12-08] MEDS: Clotrimazole 1% Cream 15 GM TUBE TOP SCH ×3 (08:39→21:54)
[2020-12-08] MEDS: Carvedilol 3.125 MG TAB PO SCH ×2 (08:39→18:15)
[2020-12-08] MEDS: Polyethylene Glycol 3350 17 GM Packet PO SCH (08:39)
[2020-12-08] MEDS: Lisinopril 10 MG TAB PO SCH (14:24)
[2020-12-08] MEDS: Atorvastatin Calcium 10 MG TAB PO SCH (14:24)
[2020-12-08] MEDS: Furosemide 20 MG TAB PO SCH (14:24)
[2020-12-08] MEDS ORDERED: Lidocaine 5% Patch TD PRN (17:37)
[2020-12-09] MEDS: HYDROcodone/Acetaminophen 10/325 mg Tablet PO PRN ×3 (01:15→18:04)
[2020-12-09] MEDS: Lidocaine Patch Removal TOP SCH (05:45)
[2020-12-09] MEDS: Calcium Carbonate 600 MG + Vit D TAB PO SCH ×2 (08:12→20:24)
[2020-12-09] MEDS: Carvedilol 3.125 MG TAB PO SCH ×2 (08:12→16:57)
[2020-12-09] MEDS: Aspirin 81 mg Enteric Coated Tablet PO SCH (08:12)
[2020-12-09] MEDS: Isosorbide Mononitrate 20 MG TAB PO SCH ×2 (08:12→20:24)
[2020-12-09] MEDS: Polyethylene Glycol 3350 17 GM Packet PO SCH (08:13)
[2020-12-09] MEDS: Clotrimazole 1% Cream 15 GM TUBE TOP SCH ×2 (08:13→20:24)
[2020-12-09] MEDS: Ibuprofen 600 MG TAB PO PRN (08:22)
[2020-12-09] MEDS: Acetaminophen 325 MG TAB PO PRN (08:23)
[2020-12-09] MEDS: Lisinopril 10 MG TAB PO SCH (12:47)
[2020-12-09] MEDS: Atorvastatin Calcium 10 MG TAB PO SCH (12:47)
[2020-12-09] MEDS: Furosemide 20 MG TAB PO SCH (12:47)
[2020-12-10] MEDS: HYDROcodone/Acetaminophen 10/325 mg Tablet PO PRN ×3 (05:01→14:43)
[2020-12-10] MEDS: Lidocaine Patch Removal TOP SCH (05:23)
[2020-12-10] MEDS: Aspirin 81 mg Enteric Coated Tablet PO SCH (08:54)
[2020-12-10] MEDS: Carvedilol 3.125 MG TAB PO SCH (08:54)
[2020-12-10] MEDS: Polyethylene Glycol 3350 17 GM Packet PO SCH (08:54)
[2020-12-10] MEDS: Isosorbide Mononitrate 20 MG TAB PO SCH (08:54)
[2020-12-10] MEDS: Calcium Carbonate 600 MG + Vit D TAB PO SCH (08:54)
[2020-12-10] MEDS: Clotrimazole 1% Cream 15 GM TUBE TOP SCH (08:55)
[2020-12-10] MEDS: Lisinopril 10 MG TAB PO SCH (11:55)
[2020-12-10] MEDS: Furosemide 20 MG TAB PO SCH (11:55)
[2020-12-10 12:06] VITALS: BP 116/71
[2020-12-10] MEDS: Atorvastatin Calcium 10 MG TAB PO SCH (12:06)
[2020-12-10 14:48] VITALS: TEMP 98.8
== END 2020-12-10 15:02 | disposition home health service (06) | DRG 561 ==
LOC: MADMS 17:41
PROVIDERS: ADMIT Family Medicine; ATTEND Family Medicine
DX: T84.622A Infection and inflammatory reaction due to internal fixation device of right tibia, initial encounter (principal); E11.9 Type 2 diabetes mellitus without complications; I25.10 Atherosclerotic heart disease of native coronary artery without angina pectoris; I10 Essential (primary) hypertension; Z96.651 Presence of right artificial knee joint; Z95.1 Presence of aortocoronary bypass graft; Z95.5 Presence of coronary angioplasty implant and graft; E78.5 Hyperlipidemia, unspecified; F32.9 Major depressive disorder, single episode, unspecified; Z79.82 Long term (current) use of aspirin; Z79.84 Long term (current) use of oral hypoglycemic drugs; Z88.0 Allergy status to penicillin; R26.9 Unspecified abnormalities of gait and mobility; Y83.8 Other surgical procedures as the cause of abnormal reaction of the patient, or of later complication, without mention of misadventure at the time of the procedure; B37.3 Candidiasis of vulva and vagina
CPT/HCPCS: 0240U; 36415; 36416; 80048; 80053; 80202; 83036; 85007; 85014; 85018; 85025; 85027; 85049; 85652; 86140; 86769; 87081; 87635; J1956; J2270; J2997; J3370; J3490; J7050; Q0162; U0003; U0005

== ENCOUNTER 2022-01-05 15:30 | Inpatient (IN) | payer MEDICARE ==
[2022-01-05] MEDS ORDERED: Acetaminophen 325 MG TAB PO PRN (22:50)
[2022-01-05] MEDS ORDERED: traMADol HCl 50 MG TAB PO PRN (22:51)
[2022-01-05] MEDS ORDERED: Carvedilol 3.125 MG TAB PO SCH (23:15)
[2022-01-05] MEDS ORDERED: Amoxicillin/Potassium Clav 500 MG TAB PO SCH (23:15)
[2022-01-05] MEDS ORDERED: Isosorbide Mononitrate 20 MG TAB PO SCH (23:15)
[2022-01-06] MEDS: HYDROcodone/Acetaminophen 10/325 mg Tablet PO PRN ×2 (00:39→07:11)
[2022-01-06] MEDS ORDERED: Amoxicillin/Potassium Clav 500 MG TAB PO SCH (09:00)
[2022-01-06] MEDS ORDERED: Aspirin 325 MG TAB PO SCH (09:00)
[2022-01-06] MEDS ORDERED: Isosorbide Mononitrate 20 MG TAB PO SCH (09:00)
[2022-01-06] MEDS ORDERED: Carvedilol 3.125 MG TAB PO SCH (09:00)
[2022-01-06] MEDS ORDERED: Artificial Tear Sol 15 ML BOT EA EYE PRN (10:23)
[2022-01-06] MEDS ORDERED: traMADol HCl 50 MG TAB PO PRN (10:23)
[2022-01-06] MEDS ORDERED: Clotrimazole 1% Cream 15 GM TUBE TOP PRN (10:23)
[2022-01-06] MEDS ORDERED: Loratadine 10 MG TAB PO PRN (10:23)
[2022-01-06] MEDS ORDERED: HumaLOG 300 UNITS/3 ML VIAL SC PRN ×2 (10:29)
[2022-01-06] MEDS ORDERED: Dextrose 50% Abboject 50 ML SYRINGE SLOW IVP PRN (10:29)
[2022-01-06] MEDS ORDERED: Bisacodyl 10 MG SUPP PR PRN (10:30)
[2022-01-06] MEDS ORDERED: Bisacodyl 5 MG TAB PO PRN (10:30)
[2022-01-06] MEDS ORDERED: BIOTIN 10 MG PO SCH (12:00)
[2022-01-06] MEDS: Lisinopril 10 MG TAB PO SCH (12:26)
[2022-01-06] MEDS: Calcium Carbonate 600 MG + Vit D TAB PO SCH (12:26)
[2022-01-06] MEDS: Furosemide 20 MG TAB PO SCH (12:27)
[2022-01-06] MEDS: Atorvastatin Calcium 10 MG TAB PO SCH (21:14)
[2022-01-06] MEDS: Isosorbide Mononitrate 20 MG TAB PO SCH (21:14)
[2022-01-06] MEDS: Aspirin 325 MG TAB PO SCH (21:14)
[2022-01-06] MEDS: Carvedilol 3.125 MG TAB PO SCH (21:14)
[2022-01-06] MEDS: Amoxicillin/Potassium Clav 500 MG TAB PO SCH (21:14)
[2022-01-07] MEDS: HYDROcodone/Acetaminophen 10/325 mg Tablet PO PRN ×3 (06:22→21:02)
[2022-01-07] MEDS: Aspirin 325 MG TAB PO SCH ×2 (08:37→21:01)
[2022-01-07] MEDS: Polyethylene Glycol 3350 17 GM Packet PO SCH (08:37)
[2022-01-07] MEDS: Isosorbide Mononitrate 20 MG TAB PO SCH ×2 (08:37→21:02)
[2022-01-07] MEDS: Saccharomyces boulardii 250 MG CAP PO SCH (08:37)
[2022-01-07] MEDS: Cholecalciferol 1,000 UNITS (25 MCG) TAB PO SCH (08:37)
[2022-01-07] MEDS: Multivit, Therapeutic 1 TAB PO SCH (08:37)
[2022-01-07] MEDS: Amoxicillin/Potassium Clav 500 MG TAB PO SCH ×2 (08:37→21:01)
[2022-01-07] MEDS: VITAMIN E 100 UNIT PO SCH (08:38)
[2022-01-07] MEDS: Carvedilol 3.125 MG TAB PO SCH ×2 (08:38→21:02)
[2022-01-07] MEDS: Furosemide 20 MG TAB PO SCH (12:17)
[2022-01-07] MEDS: Lisinopril 10 MG TAB PO SCH (12:17)
[2022-01-07] MEDS: Calcium Carbonate 600 MG + Vit D TAB PO SCH (12:17)
[2022-01-07] MEDS: Atorvastatin Calcium 10 MG TAB PO SCH (21:01)
[2022-01-08] MEDS: Carvedilol 3.125 MG TAB PO SCH ×2 (09:03→21:19)
[2022-01-08] MEDS: Saccharomyces boulardii 250 MG CAP PO SCH (09:03)
[2022-01-08] MEDS: Aspirin 325 MG TAB PO SCH ×2 (09:03→21:19)
[2022-01-08] MEDS: Multivit, Therapeutic 1 TAB PO SCH (09:03)
[2022-01-08] MEDS: Isosorbide Mononitrate 20 MG TAB PO SCH ×2 (09:03→21:19)
[2022-01-08] MEDS: Amoxicillin/Potassium Clav 500 MG TAB PO SCH ×2 (09:03→21:19)
[2022-01-08] MEDS: Cholecalciferol 1,000 UNITS (25 MCG) TAB PO SCH (09:04)
[2022-01-08] MEDS: VITAMIN E 100 UNIT PO SCH (09:04)
[2022-01-08] MEDS: Polyethylene Glycol 3350 17 GM Packet PO SCH ×2 (09:04→09:08)
[2022-01-08] MEDS: Furosemide 20 MG TAB PO SCH (12:15)
[2022-01-08] MEDS: Lisinopril 10 MG TAB PO SCH (12:15)
[2022-01-08] MEDS: Calcium Carbonate 600 MG + Vit D TAB PO SCH (12:15)
[2022-01-08] MEDS: HYDROcodone/Acetaminophen 10/325 mg Tablet PO PRN ×2 (12:16→23:47)
[2022-01-08] MEDS: Acetaminophen 325 MG TAB PO PRN (15:41)
[2022-01-08] MEDS: Atorvastatin Calcium 10 MG TAB PO SCH (21:19)
[2022-01-08] MEDS: Ibuprofen 600 MG TAB PO PRN (21:22)
[2022-01-09] MEDS: Amoxicillin/Potassium Clav 500 MG TAB PO SCH ×2 (08:25→21:01)
[2022-01-09] MEDS: VITAMIN E 100 UNIT PO SCH (08:26)
[2022-01-09] MEDS: Aspirin 325 MG TAB PO SCH ×2 (08:26→21:01)
[2022-01-09] MEDS: Carvedilol 3.125 MG TAB PO SCH ×2 (08:26→21:03)
[2022-01-09] MEDS: Isosorbide Mononitrate 20 MG TAB PO SCH ×2 (08:26→21:02)
[2022-01-09] MEDS: Polyethylene Glycol 3350 17 GM Packet PO SCH (08:26)
[2022-01-09] MEDS: Multivit, Therapeutic 1 TAB PO SCH (08:26)
[2022-01-09] MEDS: Cholecalciferol 1,000 UNITS (25 MCG) TAB PO SCH (08:26)
[2022-01-09] MEDS: Saccharomyces boulardii 250 MG CAP PO SCH (08:26)
[2022-01-09] MEDS: HYDROcodone/Acetaminophen 10/325 mg Tablet PO PRN ×2 (08:30→17:01)
[2022-01-09] MEDS: Calcium Carbonate 600 MG + Vit D TAB PO SCH (11:53)
[2022-01-09] MEDS: Lisinopril 10 MG TAB PO SCH (11:53)
[2022-01-09] MEDS: Furosemide 20 MG TAB PO SCH (11:54)
[2022-01-09] MEDS: Ibuprofen 600 MG TAB PO PRN (19:20)
[2022-01-09] MEDS: Atorvastatin Calcium 10 MG TAB PO SCH (21:02)
[2022-01-10] MEDS: HYDROcodone/Acetaminophen 10/325 mg Tablet PO PRN ×2 (01:00→21:25)
[2022-01-10] MEDS: Isosorbide Mononitrate 20 MG TAB PO SCH ×2 (09:40→21:27)
[2022-01-10] MEDS: Aspirin 325 MG TAB PO SCH ×2 (09:40→21:27)
[2022-01-10] MEDS: Amoxicillin/Potassium Clav 500 MG TAB PO SCH ×2 (09:40→21:27)
[2022-01-10] MEDS: Cholecalciferol 1,000 UNITS (25 MCG) TAB PO SCH (09:41)
[2022-01-10] MEDS: Saccharomyces boulardii 250 MG CAP PO SCH (09:41)
[2022-01-10] MEDS: Polyethylene Glycol 3350 17 GM Packet PO SCH (09:41)
[2022-01-10] MEDS: Multivit, Therapeutic 1 TAB PO SCH (09:41)
[2022-01-10] MEDS: Carvedilol 3.125 MG TAB PO SCH ×2 (09:41→21:27)
[2022-01-10] MEDS: Calcium Carbonate 600 MG + Vit D TAB PO SCH (12:46)
[2022-01-10] MEDS: Furosemide 20 MG TAB PO SCH (12:46)
[2022-01-10] MEDS: Lisinopril 10 MG TAB PO SCH (12:46)
[2022-01-10] MEDS: Atorvastatin Calcium 10 MG TAB PO SCH (21:26)
[2022-01-11] MEDS: Amoxicillin/Potassium Clav 500 MG TAB PO SCH ×2 (09:06→21:06)
[2022-01-11] MEDS: Carvedilol 3.125 MG TAB PO SCH ×2 (09:06→21:06)
[2022-01-11] MEDS: Aspirin 325 MG TAB PO SCH ×2 (09:06→21:06)
[2022-01-11] MEDS: Polyethylene Glycol 3350 17 GM Packet PO SCH (09:07)
[2022-01-11] MEDS: Isosorbide Mononitrate 20 MG TAB PO SCH ×2 (09:07→21:06)
[2022-01-11] MEDS: Cholecalciferol 1,000 UNITS (25 MCG) TAB PO SCH (09:07)
[2022-01-11] MEDS: Multivit, Therapeutic 1 TAB PO SCH (09:07)
[2022-01-11] MEDS: Saccharomyces boulardii 250 MG CAP PO SCH (09:07)
[2022-01-11] MEDS: HYDROcodone/Acetaminophen 10/325 mg Tablet PO PRN ×3 (09:10→21:09)
[2022-01-11] MEDS: Furosemide 20 MG TAB PO SCH (12:40)
[2022-01-11] MEDS: Lisinopril 10 MG TAB PO SCH (12:40)
[2022-01-11] MEDS: Calcium Carbonate 600 MG + Vit D TAB PO SCH (12:40)
[2022-01-11] MEDS: Atorvastatin Calcium 10 MG TAB PO SCH (21:06)
[2022-01-12] MEDS: Cholecalciferol 1,000 UNITS (25 MCG) TAB PO SCH (08:41)
[2022-01-12] MEDS: Amoxicillin/Potassium Clav 500 MG TAB PO SCH ×2 (08:41→20:51)
[2022-01-12] MEDS: Aspirin 325 MG TAB PO SCH ×2 (08:41→20:51)
[2022-01-12] MEDS: Carvedilol 3.125 MG TAB PO SCH ×2 (08:41→20:50)
[2022-01-12] MEDS: Saccharomyces boulardii 250 MG CAP PO SCH (08:41)
[2022-01-12] MEDS: Polyethylene Glycol 3350 17 GM Packet PO SCH (08:44)
[2022-01-12] MEDS: Multivit, Therapeutic 1 TAB PO SCH (08:46)
[2022-01-12] MEDS: Isosorbide Mononitrate 20 MG TAB PO SCH ×2 (08:47→20:51)
[2022-01-12] MEDS: HYDROcodone/Acetaminophen 10/325 mg Tablet PO PRN ×2 (11:08→20:50)
[2022-01-12] MEDS: Furosemide 20 MG TAB PO SCH (12:08)
[2022-01-12] MEDS: Lisinopril 10 MG TAB PO SCH (12:09)
[2022-01-12] MEDS: Calcium Carbonate 600 MG + Vit D TAB PO SCH (12:09)
[2022-01-12] MEDS: Atorvastatin Calcium 10 MG TAB PO SCH (20:51)
[2022-01-13] MEDS: HYDROcodone/Acetaminophen 10/325 mg Tablet PO PRN ×4 (03:59→20:44)
[2022-01-13] MEDS: Saccharomyces boulardii 250 MG CAP PO SCH (09:11)
[2022-01-13] MEDS: Multivit, Therapeutic 1 TAB PO SCH (09:11)
[2022-01-13] MEDS: Amoxicillin/Potassium Clav 500 MG TAB PO SCH ×2 (09:11→20:46)
[2022-01-13] MEDS: Cholecalciferol 1,000 UNITS (25 MCG) TAB PO SCH (09:12)
[2022-01-13] MEDS: Aspirin 325 MG TAB PO SCH ×2 (09:12→20:46)
[2022-01-13] MEDS: Carvedilol 3.125 MG TAB PO SCH ×2 (09:17→20:46)
[2022-01-13] MEDS: Isosorbide Mononitrate 20 MG TAB PO SCH ×2 (09:17→20:46)
[2022-01-13] MEDS: Polyethylene Glycol 3350 17 GM Packet PO SCH (09:23)
[2022-01-13] MEDS: Furosemide 20 MG TAB PO SCH (11:42)
[2022-01-13] MEDS: Lisinopril 10 MG TAB PO SCH (11:42)
[2022-01-13] MEDS: Calcium Carbonate 600 MG + Vit D TAB PO SCH (11:42)
[2022-01-13] MEDS: Atorvastatin Calcium 10 MG TAB PO SCH (20:46)
[2022-01-14] MEDS: Polyethylene Glycol 3350 17 GM Packet PO SCH (08:25)
[2022-01-14] MEDS: Amoxicillin/Potassium Clav 500 MG TAB PO SCH ×2 (08:26→21:44)
[2022-01-14] MEDS: Saccharomyces boulardii 250 MG CAP PO SCH (08:26)
[2022-01-14] MEDS: Isosorbide Mononitrate 20 MG TAB PO SCH ×2 (08:26→21:44)
[2022-01-14] MEDS: Multivit, Therapeutic 1 TAB PO SCH (08:27)
[2022-01-14] MEDS: Cholecalciferol 1,000 UNITS (25 MCG) TAB PO SCH (08:27)
[2022-01-14] MEDS: Carvedilol 3.125 MG TAB PO SCH ×2 (08:27→21:44)
[2022-01-14] MEDS: Aspirin 325 MG TAB PO SCH ×2 (08:27→21:44)
[2022-01-14] MEDS: Furosemide 20 MG TAB PO SCH (11:31)
[2022-01-14] MEDS: Lisinopril 10 MG TAB PO SCH (11:31)
[2022-01-14] MEDS: Calcium Carbonate 600 MG + Vit D TAB PO SCH (11:31)
[2022-01-14] MEDS ORDERED: HYDROcodone/Acetaminophen 10/325 mg Tablet ONE (17:08)
[2022-01-14] MEDS: HYDROcodone/Acetaminophen 10/325 mg Tablet PO PRN ×2 (17:19→22:55)
[2022-01-14] MEDS: Atorvastatin Calcium 10 MG TAB PO SCH (21:44)
[2022-01-15] MEDS: Saccharomyces boulardii 250 MG CAP PO SCH (08:14)
[2022-01-15] MEDS: Carvedilol 3.125 MG TAB PO SCH ×2 (08:14→20:11)
[2022-01-15] MEDS: Multivit, Therapeutic 1 TAB PO SCH (08:14)
[2022-01-15] MEDS: Cholecalciferol 1,000 UNITS (25 MCG) TAB PO SCH (08:14)
[2022-01-15] MEDS: Isosorbide Mononitrate 20 MG TAB PO SCH ×2 (08:14→20:11)
[2022-01-15] MEDS: Aspirin 325 MG TAB PO SCH ×2 (08:14→20:11)
[2022-01-15] MEDS: Amoxicillin/Potassium Clav 500 MG TAB PO SCH ×2 (08:14→20:11)
[2022-01-15] MEDS: Polyethylene Glycol 3350 17 GM Packet PO SCH (08:17)
[2022-01-15] MEDS: Lisinopril 10 MG TAB PO SCH (11:56)
[2022-01-15] MEDS: Furosemide 20 MG TAB PO SCH ×2 (11:56→12:03)
[2022-01-15] MEDS: Calcium Carbonate 600 MG + Vit D TAB PO SCH (11:56)
[2022-01-15] MEDS: HYDROcodone/Acetaminophen 10/325 mg Tablet PO PRN ×2 (12:01→20:10)
[2022-01-15] MEDS: Atorvastatin Calcium 10 MG TAB PO SCH (20:11)
[2022-01-16] MEDS: HYDROcodone/Acetaminophen 10/325 mg Tablet PO PRN ×3 (03:02→18:00)
[2022-01-16 05:17] LABS: #Basophils 0.1 thou/uL (0.0-0.2); #Eosinphils 0.4 thou/uL (0.0-0.7); #Lymphocytes 1.3 thou/uL (1.20-3.40); #Monocytes 1.1 thou/uL (0.11-0.59); #Neutrophils 7.7 thou/uL (1.40-6.50); %Basophils 0.7 % (0.0-1.0); %Eosinophils 3.6 % (0.0-10.0); %Lymphocytes 12.2 % (21.0-51.0); %Monocytes 10.1 % (0.0-10.0); %Neutrophils 73.3 % (42.0-75.0); Hemoglobin 8.8 g/dL (12.0-16.0); Mean Corpuscular HGB CONC 31.9 g/dL (32.0-36.0); Mean Corpuscular Hemoglobin 29.2 pg (27.0-31.0); Mean Corpuscular Volume 91.5 fL (78.0-98.0); Mean Platelet Volume 5.9 fL (7.4-10.4); Platelet Count 437 thou/uL (130-400); RBC Distribution Width 13.8 % (11.5-14.5); Red Blood Cell (RBC) Count 3.02 mill/uL (4.20-5.40); White Blood Cell (WBC) Count 10.5 thou/uL (4.8-10.8)
[2022-01-16 05:35] LABS: ALT (SGPT) 9 U/L (8-55); AST (SGOT) 15 U/L (5-34); Albumin 3.7 g/dL (3.4-4.8); Alkaline Phosphatase 123 U/L (40-110); Anion Gap 13 mmol/L (10-20); BUN (Urea Nitrogen) 16 mg/dL (9.8-20.1); Bilirubin, Total 0.4 mg/dL (0.2-1.2); Calc. Creatinine Clearance 100 mL/min (70-130); Calcium 9.5 mg/dL (7.8-10.44); Carbon Dioxide 30 mmol/L (23-31); Chloride 103 mmol/L (98-107); Globulin 3.5 g/dL (2.4-3.5); Glucose 114 mg/dL (80-115); Potassium 4.8 mmol/L (3.5-5.1); Protein, Total 7.2 g/dL (5.8-8.1); Sodium 141 mmol/L (136-145)
[2022-01-16] MEDS: Cholecalciferol 1,000 UNITS (25 MCG) TAB PO SCH (08:25)
[2022-01-16] MEDS: Carvedilol 3.125 MG TAB PO SCH ×2 (08:25→20:45)
[2022-01-16] MEDS: Saccharomyces boulardii 250 MG CAP PO SCH (08:25)
[2022-01-16] MEDS: Amoxicillin/Potassium Clav 500 MG TAB PO SCH ×2 (08:25→20:45)
[2022-01-16] MEDS: Isosorbide Mononitrate 20 MG TAB PO SCH ×2 (08:25→20:45)
[2022-01-16] MEDS: Aspirin 325 MG TAB PO SCH ×2 (08:25→20:45)
[2022-01-16] MEDS: Multivit, Therapeutic 1 TAB PO SCH (08:25)
[2022-01-16] MEDS: Polyethylene Glycol 3350 17 GM Packet PO SCH (08:26)
[2022-01-16] MEDS: Ferrous Sulfate 325 MG TAB PO SCH ×2 (08:30→17:17)
[2022-01-16 11:28] LABS: Hemoglobin A1c 5.7 % (4.0-6.0)
[2022-01-16] MEDS: Calcium Carbonate 600 MG + Vit D TAB PO SCH (12:01)
[2022-01-16] MEDS: Lisinopril 10 MG TAB PO SCH (12:02)
[2022-01-16] MEDS: Furosemide 20 MG TAB PO SCH (12:02)
[2022-01-16] MEDS ORDERED: traMADol HCl 50 MG TAB PO PRN (14:51)
[2022-01-16] MEDS: Atorvastatin Calcium 10 MG TAB PO SCH (20:45)
[2022-01-17] MEDS: HYDROcodone/Acetaminophen 10/325 mg Tablet PO PRN ×4 (03:30→22:57)
[2022-01-17] MEDS: Multivit, Therapeutic 1 TAB PO SCH (08:22)
[2022-01-17] MEDS: Ferrous Sulfate 325 MG TAB PO SCH ×2 (08:22→17:22)
[2022-01-17] MEDS: Aspirin 325 MG TAB PO SCH ×2 (08:23→21:37)
[2022-01-17] MEDS: Carvedilol 3.125 MG TAB PO SCH ×2 (08:23→21:37)
[2022-01-17] MEDS: Polyethylene Glycol 3350 17 GM Packet PO SCH (08:23)
[2022-01-17] MEDS: Isosorbide Mononitrate 20 MG TAB PO SCH ×2 (08:23→21:37)
[2022-01-17] MEDS: Saccharomyces boulardii 250 MG CAP PO SCH (08:23)
[2022-01-17] MEDS: Cholecalciferol 1,000 UNITS (25 MCG) TAB PO SCH (08:23)
[2022-01-17] MEDS: Lisinopril 10 MG TAB PO SCH (11:06)
[2022-01-17] MEDS: Calcium Carbonate 600 MG + Vit D TAB PO SCH (11:06)
[2022-01-17] MEDS: Furosemide 20 MG TAB PO SCH (11:07)
[2022-01-17 14:48] VITALS: BMI 37.0
[2022-01-17] MEDS: Acetaminophen 325 MG TAB PO PRN (19:51)
[2022-01-17] MEDS: Atorvastatin Calcium 10 MG TAB PO SCH (21:37)
[2022-01-17] MEDS ORDERED: Amoxicillin/Potassium Clav 500 MG TAB PO SCH (22:45)
[2022-01-17 23:27] LABS: SARS-CoV-2 NAA Rapid Test DETECTED (NotDetected)
[2022-01-18] MEDS: HYDROcodone/Acetaminophen 10/325 mg Tablet PO PRN ×4 (03:44→21:23)
[2022-01-18] MEDS: Saccharomyces boulardii 250 MG CAP PO SCH (08:57)
[2022-01-18] MEDS: Multivit, Therapeutic 1 TAB PO SCH (08:57)
[2022-01-18] MEDS: Polyethylene Glycol 3350 17 GM Packet PO SCH (08:57)
[2022-01-18] MEDS: Zinc Sulfate 220 MG CAP PO SCH (08:58)
[2022-01-18] MEDS: Cholecalciferol 1,000 UNITS (25 MCG) TAB PO SCH (08:58)
[2022-01-18] MEDS: Ascorbic Acid 500 mg Chewable Tablet PO SCH ×2 (08:58→21:22)
[2022-01-18] MEDS: Carvedilol 3.125 MG TAB PO SCH ×2 (08:59→21:22)
[2022-01-18] MEDS: Ferrous Sulfate 325 MG TAB PO SCH ×2 (08:59→17:22)
[2022-01-18] MEDS: Aspirin 325 MG TAB PO SCH ×2 (08:59→21:21)
[2022-01-18] MEDS: Amoxicillin/Potassium Clav 500 MG TAB PO SCH ×2 (08:59→21:21)
[2022-01-18] MEDS: Isosorbide Mononitrate 20 MG TAB PO SCH ×2 (08:59→21:22)
[2022-01-18] MEDS: Furosemide 20 MG TAB PO SCH (12:01)
[2022-01-18] MEDS: Calcium Carbonate 600 MG + Vit D TAB PO SCH (12:01)
[2022-01-18] MEDS: Lisinopril 10 MG TAB PO SCH (12:01)
[2022-01-18] MEDS: Atorvastatin Calcium 10 MG TAB PO SCH (21:32)
[2022-01-19] MEDS: Polyethylene Glycol 3350 17 GM Packet PO SCH ×2 (08:01→08:03)
[2022-01-19] MEDS: HYDROcodone/Acetaminophen 10/325 mg Tablet PO PRN ×3 (08:02→21:25)
[2022-01-19] MEDS: Saccharomyces boulardii 250 MG CAP PO SCH (08:03)
[2022-01-19] MEDS: Isosorbide Mononitrate 20 MG TAB PO SCH ×2 (08:03→21:22)
[2022-01-19] MEDS: Amoxicillin/Potassium Clav 500 MG TAB PO SCH ×2 (08:03→21:20)
[2022-01-19] MEDS: Cholecalciferol 1,000 UNITS (25 MCG) TAB PO SCH (08:03)
[2022-01-19] MEDS: Zinc Sulfate 220 MG CAP PO SCH ×2 (08:03→08:05)
[2022-01-19] MEDS: Carvedilol 3.125 MG TAB PO SCH ×2 (08:03→21:22)
[2022-01-19] MEDS: Ascorbic Acid 500 mg Chewable Tablet PO SCH ×2 (08:03→21:21)
[2022-01-19] MEDS: Aspirin 325 MG TAB PO SCH ×2 (08:03→21:21)
[2022-01-19] MEDS: Multivit, Therapeutic 1 TAB PO SCH (08:05)
[2022-01-19] MEDS: Ferrous Sulfate 325 MG TAB PO SCH ×2 (08:06→17:03)
[2022-01-19] MEDS: Furosemide 20 MG TAB PO SCH (11:45)
[2022-01-19] MEDS: Calcium Carbonate 600 MG + Vit D TAB PO SCH (11:45)
[2022-01-19] MEDS: Lisinopril 10 MG TAB PO SCH (11:46)
[2022-01-19] MEDS: Atorvastatin Calcium 10 MG TAB PO SCH (21:21)
[2022-01-20 08:17] VITALS: TEMP 97.7
[2022-01-20] MEDS: Ferrous Sulfate 325 MG TAB PO SCH ×2 (10:07→16:27)
[2022-01-20] MEDS: Ascorbic Acid 500 mg Chewable Tablet PO SCH (10:08)
[2022-01-20] MEDS: Amoxicillin/Potassium Clav 500 MG TAB PO SCH (10:08)
[2022-01-20] MEDS: Aspirin 325 MG TAB PO SCH (10:08)
[2022-01-20] MEDS: Carvedilol 3.125 MG TAB PO SCH (10:08)
[2022-01-20] MEDS: Isosorbide Mononitrate 20 MG TAB PO SCH (10:09)
[2022-01-20] MEDS: Multivit, Therapeutic 1 TAB PO SCH (10:09)
[2022-01-20] MEDS: Cholecalciferol 1,000 UNITS (25 MCG) TAB PO SCH (10:09)
[2022-01-20] MEDS: Saccharomyces boulardii 250 MG CAP PO SCH (10:10)
[2022-01-20] MEDS: Zinc Sulfate 220 MG CAP PO SCH (10:13)
[2022-01-20] MEDS: Polyethylene Glycol 3350 17 GM Packet PO SCH (10:14)
[2022-01-20] MEDS: Lisinopril 10 MG TAB PO SCH (11:43)
[2022-01-20] MEDS: Calcium Carbonate 600 MG + Vit D TAB PO SCH (11:43)
[2022-01-20 11:44] VITALS: BP 126/70
[2022-01-20] MEDS: Furosemide 20 MG TAB PO SCH (11:44)
[2022-01-20] MEDS: HYDROcodone/Acetaminophen 10/325 mg Tablet PO PRN (16:26)
== END 2022-01-20 17:35 | disposition home or self-care (01) | DRG 559 ==
LOC: MADMS 17:01
PROVIDERS: ADMIT Family Medicine; ATTEND Family Medicine
PROC: 8E0ZXY6 Isolation (ICD-10-PCS; principal; 2022-01-17)
DX: S82.291G Other fracture of shaft of right tibia, subsequent encounter for closed fracture with delayed healing (principal); U07.1 COVID-19; F05 Delirium due to known physiological condition; K21.9 Gastro-esophageal reflux disease without esophagitis; F32.A Depression, unspecified; E78.5 Hyperlipidemia, unspecified; I25.10 Atherosclerotic heart disease of native coronary artery without angina pectoris; I11.0 Hypertensive heart disease with heart failure; R53.1 Weakness; I50.9 Heart failure, unspecified; D64.9 Anemia, unspecified; E11.9 Type 2 diabetes mellitus without complications; R26.9 Unspecified abnormalities of gait and mobility; Z96.651 Presence of right artificial knee joint; Z95.1 Presence of aortocoronary bypass graft; Z95.5 Presence of coronary angioplasty implant and graft; Z98.890 Other specified postprocedural states; Z79.899 Other long term (current) drug therapy; Z79.82 Long term (current) use of aspirin; Z88.1 Allergy status to other antibiotic agents; Z88.0 Allergy status to penicillin; Z91.09 Other allergy status, other than to drugs and biological substances
CPT/HCPCS: 36415; 36416; 80053; 83036; 85025; U0002; U0003; U0005